=== PATIENT | female | born 1970 | race Caucasian/White ===

== ENCOUNTER 2018-05-26 20:33 | Inpatient (IN) | payer MEDICAID ==
[~2018-05-26] VITALS: Ht 163.8 cm; Wt 98.8 kg
[2018-05-26] MEDS ORDERED: SODIUM CHLORIDE 0.9% 1,000ML IVBOLUS ONE (21:30)
[2018-05-26] MEDS ORDERED: SODIUM CHLORIDE FLUSH 10ML SYR IVF ONE (21:30)
[2018-05-26] MEDS ORDERED: CLINDAMYCIN PMX 900MG/50ML 50 ML IVPB ONE (21:30)
[2018-05-26] MEDS ORDERED: LIDOCAINE-MPF 2%, 2ML ONE (21:52)
[2018-05-26 22:08] LABS: BASOPHILS # (AUTO) 0.03 x10^3/uL (0-0.1); BASOPHILS % (AUTO) 0 % (0-1); EOSINOPHILS # (AUTO) 0.04 x10^3/uL (0-0.4); EOSINOPHILS % (AUTO) 0 % (1-7); LYMPHOCYTES # (AUTO) 1.14 x10^3/uL (1-3.4); LYMPHOCYTES % (AUTO) 12 % (22-44); MD NO; MEAN CORPUSCULAR HEMOGLOBIN 30.7 pg (27.0-34.8); MEAN CORPUSCULAR HGB CONC 33.2 g/dL (32.4-35.8); MEAN CORPUSCULAR VOLUME 92.4 fL (80-100); MONOCYTES # (AUTO) 0.81 x10^3/uL (0.2-0.8); MONOCYTES % (AUTO) 8 % (2-9); NEUTROPHILS # (AUTO) 7.84 x10^3/uL (1.8-6.8); NEUTROPHILS % (AUTO) 80 % (42-75); PLATELET COUNT 218 x10^3/uL (130-400); RED BLOOD COUNT 5.36 x10^6/uL (3.82-5.3); RED CELL DISTRIBUTION WIDTH 16.9 % (9.6-15.2)
[2018-05-26 22:26] LABS: ALANINE AMINOTRANSFERASE 11 U/L (12-78); ALBUMIN 2.8 g/dL (3.4-5.0); ANION GAP 3 mmol/L (5-15); CALCIUM 8.5 mg/dL (8.5-10.1); CHLORIDE 102 mmol/L (98-107); CREATININE 0.71 mg/dL (0.55-1.02)
[2018-05-26 22:29] LABS: ALKALINE PHOSPHATASE 253 U/L (45-117); BILIRUBIN,TOTAL 2.3 mg/dL (0.2-1.0); TOTAL PROTEIN 7.5 g/dL (6.4-8.2)
[2018-05-26] MEDS ORDERED: MORPHINE SULFATE 4 MG/ML, 1ML ONE (23:11)
[2018-05-26] MEDS ORDERED: CLINDAMYCIN PMX 900MG/50ML 50 ML ONE (23:11)
[2018-05-26] MEDS ORDERED: ONDANSETRON ODT 4 MG ONE (23:11)
[2018-05-26 23:30] LABS: AMPHETAMINE SCREEN, URINE Negative (Negative); BARBITURATE SCREEN, URINE Negative (Negative); BENZODIAZEPINE SCREEN, URINE Negative (Negative); CANNABINOID SCREEN, URINE Negative (Negative); COCAINE SCREEN, URINE Negative (Negative); METHADONE SCREEN, URINE Negative (Negative); OPIATE SCREEN, URINE Positive (Negative)
[2018-05-26] MEDS ORDERED: ONDANSETRON ODT 4 MG PO ONE (23:30)
[2018-05-26] MEDS ORDERED: MORPHINE SULFATE 4 MG/ML, 1ML IVPush PRN (23:30)
[2018-05-26] MEDS ORDERED: OMNIPAQUE 350 MG/ML, 100ML BOTTLE ONE (23:52)
[2018-05-27] MEDS ORDERED: LABETALOL 5MG/ML, 20ML IVPush PRN (01:00)
[2018-05-27] MEDS ORDERED: ONDANSETRON 2MG/ML, 2ML IVPush PRN (01:00)
[2018-05-27] MEDS ORDERED: PROMETHAZINE 25 MG/ML, 1ML IM PRN (01:00)
[2018-05-27] MEDS ORDERED: BISACODYL 10 MG SUPP PR PRN (01:00)
[2018-05-27] MEDS ORDERED: ONDANSETRON ODT 4 MG PO PRN (01:00)
[2018-05-27] MEDS ORDERED: hydrALAzine 20 MG/ML, 1ML IVPush PRN (01:00)
[2018-05-27 01:11] LABS: FREE T4 (FREE THYROXINE) 1.31 ng/dL (0.76-1.46)
[2018-05-27 01:15] VITALS: BP 103/71
[2018-05-27 01:19] LABS: HEMOGLOBIN A1C 6.6 % (4.2-6.3)
[2018-05-27] MEDS: CEFTAROLINE 600 MG in SODIUM CHLORIDE 0.9% 100 ML IV SCH ×2 (01:58→14:42)
[2018-05-27] MEDS: OXYcodone IR 5MG TABLET PO PRN ×5 (01:59→20:41)
[2018-05-27] MEDS: SODIUM CHLORIDE 0.9% 1,000 ML IV SCH ×2 (01:59→13:25)
[2018-05-27] MEDS: HEPARIN 5,000 UNITS/ML, 1ML SQ SCH ×3 (01:59→17:48)
[2018-05-27 02:49] LABS: HCT (SEDRATE) 49.5 % (34.6-47.8)
[2018-05-27 06:47] VITALS: BP 107/78
[2018-05-27 06:53] LABS: BASOPHILS # (AUTO) 0.08 x10^3/uL (0-0.1); BASOPHILS % (AUTO) 1 % (0-1); EOSINOPHILS # (AUTO) 0.04 x10^3/uL (0-0.4); EOSINOPHILS % (AUTO) 0 % (1-7); LYMPHOCYTES # (AUTO) 1.01 x10^3/uL (1-3.4); LYMPHOCYTES % (AUTO) 10 % (22-44); MD NO; MEAN CORPUSCULAR HGB CONC 33.5 g/dL (32.4-35.8); MEAN CORPUSCULAR VOLUME 92.5 fL (80-100); MEAN PLATELET VOLUME 8.1 fL (7.4-10.4); MONOCYTES # (AUTO) 1.06 x10^3/uL (0.2-0.8); MONOCYTES % (AUTO) 10 % (2-9); NEUTROPHILS % (AUTO) 79 % (42-75); PLATELET COUNT 215 x10^3/uL (130-400); RED BLOOD COUNT 4.88 x10^6/uL (3.82-5.3); RED CELL DISTRIBUTION WIDTH 16.5 % (9.6-15.2)
[2018-05-27 07:01] LABS: ALANINE AMINOTRANSFERASE 9 U/L (12-78); ALBUMIN 2.4 g/dL (3.4-5.0); ANION GAP 6 mmol/L (5-15); CALCIUM 7.6 mg/dL (8.5-10.1); CHLORIDE 104 mmol/L (98-107); CREATININE 0.53 mg/dL (0.55-1.02)
[2018-05-27 07:03] LABS: ALKALINE PHOSPHATASE 222 U/L (45-117); BILIRUBIN,TOTAL 2.1 mg/dL (0.2-1.0); TOTAL PROTEIN 6.5 g/dL (6.4-8.2)
[2018-05-27] MEDS ORDERED: MAGNESIUM SULFATE PMX 2GM/50ML 50 ML IV ONE (07:30)
[2018-05-27] MEDS: CALCIUM CARBONATE 500 MG TABLET PO SCH ×2 (08:39→20:41)
[2018-05-27] MEDS: MAGNESIUM CHLORIDE 64 MG TABLET.DR PO SCH ×2 (08:39→20:41)
[2018-05-27] MEDS: KETOROLAC 30 MG/1 ML IV PRN ×2 (08:56→16:06)
[2018-05-27 14:00] VITALS: BP 99/69
[2018-05-27] MEDS ORDERED: LORazepam 2 MG/ML, 1ML IVPush ONE (17:00)
[2018-05-27] MEDS ORDERED: GADOBUTROL 10 MMOL/10 ML PFS ONE (18:44)
[2018-05-27 19:44] VITALS: BP 103/68
[2018-05-28] MEDS: OXYcodone IR 5MG TABLET PO PRN ×5 (00:33→20:42)
[2018-05-28 01:21] LABS: CULTURE INDICATED? YES; MICROSCOPIC INDICATED
[2018-05-28] MEDS: CEFTAROLINE 600 MG in SODIUM CHLORIDE 0.9% 100 ML IV SCH ×2 (01:57→14:45)
[2018-05-28] MEDS: HEPARIN 5,000 UNITS/ML, 1ML SQ SCH ×3 (01:57→18:11)
[2018-05-28 02:35] VITALS: BP 106/69
[2018-05-28 06:54] VITALS: BP 94/62
[2018-05-28 08:15] LABS: CHOL/HDL RATIO 2.5; LDL/HDL RATIO 1.1 (0.5-3.0)
[2018-05-28] MEDS: CALCIUM CARBONATE 500 MG TABLET PO SCH ×2 (09:20→20:42)
[2018-05-28] MEDS: MAGNESIUM CHLORIDE 64 MG TABLET.DR PO SCH ×2 (09:20→20:42)
[2018-05-28] MEDS ORDERED: OMNIPAQUE 350 MG/ML, 75ML BOTTLE ONE (10:20)
[2018-05-28] MEDS: KETOROLAC 30 MG/1 ML IV PRN ×2 (10:43→18:11)
[2018-05-28 12:08] VITALS: BP 108/79
[2018-05-28 13:42] VITALS: BP 95/72
[2018-05-28 19:06] VITALS: BP 108/79
[2018-05-29 01:53] VITALS: BP 90/62
[2018-05-29] MEDS: OXYcodone IR 5MG TABLET PO PRN ×2 (02:02→21:46)
[2018-05-29] MEDS: HEPARIN 5,000 UNITS/ML, 1ML SQ SCH ×3 (02:02→21:38)
[2018-05-29] MEDS: CEFTAROLINE 600 MG in SODIUM CHLORIDE 0.9% 100 ML IV SCH (02:02)
[2018-05-29] MEDS: KETOROLAC 30 MG/1 ML IV PRN (05:14)
[2018-05-29 06:09] LABS: BASOPHILS # (AUTO) 0.08 x10^3/uL (0-0.1); BASOPHILS % (AUTO) 1 % (0-1); EOSINOPHILS # (AUTO) 0.29 x10^3/uL (0-0.4); EOSINOPHILS % (AUTO) 4 % (1-7); LYMPHOCYTES # (AUTO) 1.58 x10^3/uL (1-3.4); LYMPHOCYTES % (AUTO) 20 % (22-44); MD NO; MEAN CORPUSCULAR HEMOGLOBIN 30.5 pg (27.0-34.8); MEAN CORPUSCULAR HGB CONC 32.9 g/dL (32.4-35.8); MEAN CORPUSCULAR VOLUME 92.7 fL (80-100); MEAN PLATELET VOLUME 8.2 fL (7.4-10.4); MONOCYTES # (AUTO) 0.77 x10^3/uL (0.2-0.8); MONOCYTES % (AUTO) 10 % (2-9); NEUTROPHILS # (AUTO) 5.19 x10^3/uL (1.8-6.8); NEUTROPHILS % (AUTO) 66 % (42-75); PLATELET COUNT 241 x10^3/uL (130-400); RED BLOOD COUNT 4.92 x10^6/uL (3.82-5.3)
[2018-05-29 06:15] LABS: ANION GAP 6 mmol/L (5-15); CALCIUM 8.1 mg/dL (8.5-10.1); CHLORIDE 104 mmol/L (98-107); CREATININE 0.77 mg/dL (0.55-1.02)
[2018-05-29 07:24] VITALS: BP 95/57
[2018-05-29] MEDS: CALCIUM CARBONATE 500 MG TABLET PO SCH ×2 (08:28→21:38)
[2018-05-29] MEDS: MAGNESIUM CHLORIDE 64 MG TABLET.DR PO SCH ×2 (08:28→21:38)
[2018-05-29] MEDS ORDERED: CLINDAMYCIN PMX 600MG/50ML 50 ML IV SCH (10:00)
[2018-05-29] MEDS: LACTOBACILLUS CHEW TABLET PO SCH ×3 (10:51→21:38)
[2018-05-29 13:18] VITALS: BP 98/68
[2018-05-29] MEDS ORDERED: VANCOMYCIN PER PHARMACY MC PRN (13:30)
[2018-05-29] MEDS ORDERED: VANCOMYCIN PMX 1GM/200ML 200 ML IV ONE (13:30)
[2018-05-29] MEDS ORDERED: PHARMACOKINETIC MONITORING MC PRN (14:00)
[2018-05-29] MEDS ORDERED: PHARMACOKINETIC CONSULTATION MC ONE (14:00)
[2018-05-29] MEDS: VANCOMYCIN 1,800 MG in SODIUM CHLORIDE 0.9% 250 ML IV SCH (17:44)
[2018-05-29 19:28] VITALS: BP 102/70
[2018-05-30] MEDS: HEPARIN 5,000 UNITS/ML, 1ML SQ SCH ×3 (02:30→20:18)
[2018-05-30 03:00] VITALS: BP 107/72
[2018-05-30] MEDS: VANCOMYCIN 1,800 MG in SODIUM CHLORIDE 0.9% 250 ML IV SCH ×2 (04:44→17:45)
[2018-05-30 07:20] VITALS: BP 100/70
[2018-05-30] MEDS: LACTOBACILLUS CHEW TABLET PO SCH ×3 (09:29→20:18)
[2018-05-30] MEDS: MAGNESIUM CHLORIDE 64 MG TABLET.DR PO SCH ×2 (09:29→20:18)
[2018-05-30] MEDS: OXYcodone IR 5MG TABLET PO PRN ×3 (09:29→20:26)
[2018-05-30] MEDS: CALCIUM CARBONATE 500 MG TABLET PO SCH ×2 (09:29→20:19)
[2018-05-30 13:27] VITALS: BP 104/69
[2018-05-30 19:01] VITALS: BP 94/64
[2018-05-31 00:55] VITALS: BP 97/67
[2018-05-31 02:47] LABS: CREATININE 0.66 mg/dL (0.55-1.02)
[2018-05-31] MEDS: HEPARIN 5,000 UNITS/ML, 1ML SQ SCH ×3 (02:47→19:18)
[2018-05-31] MEDS: OXYcodone IR 5MG TABLET PO PRN ×3 (03:22→16:23)
[2018-05-31 07:03] VITALS: BP 112/78
[2018-05-31] MEDS: CALCIUM CARBONATE 500 MG TABLET PO SCH ×2 (07:59→19:18)
[2018-05-31] MEDS: LACTOBACILLUS CHEW TABLET PO SCH ×3 (08:00→19:18)
[2018-05-31] MEDS: DOCUSATE 100 MG CAPSULE PO PRN (11:32)
[2018-05-31 12:28] VITALS: BP 137/75
[2018-05-31 19:20] VITALS: BP 98/69
[2018-06-01] MEDS: OXYcodone IR 5MG TABLET PO PRN ×4 (00:44→22:03)
[2018-06-01 01:29] VITALS: BP 102/72
[2018-06-01] MEDS: HEPARIN 5,000 UNITS/ML, 1ML SQ SCH ×3 (02:35→20:04)
[2018-06-01 03:21] LABS: ALANINE AMINOTRANSFERASE 12 U/L (12-78); ALBUMIN 2.3 g/dL (3.4-5.0); ANION GAP 5 mmol/L (5-15); CALCIUM 8.3 mg/dL (8.5-10.1); CHLORIDE 106 mmol/L (98-107)
[2018-06-01 03:24] LABS: ALKALINE PHOSPHATASE 259 U/L (45-117); BILIRUBIN,TOTAL 1.1 mg/dL (0.2-1.0); CREATININE 0.71 mg/dL (0.55-1.02); TOTAL PROTEIN 6.5 g/dL (6.4-8.2); VANCOMYCIN,RANDOM 14.3 mcg/mL
[2018-06-01] MEDS ORDERED: VANCOMYCIN 1,800 MG in SODIUM CHLORIDE 0.9% 250 ML IV ONE (05:00)
[2018-06-01 07:51] VITALS: BP 103/70
[2018-06-01] MEDS: CALCIUM CARBONATE 500 MG TABLET PO SCH ×2 (09:31→20:04)
[2018-06-01] MEDS: LACTOBACILLUS CHEW TABLET PO SCH ×3 (09:31→20:04)
[2018-06-01] MEDS: ACETAMINOPHEN 325 MG TABLET PO PRN ×3 (09:54→22:03)
[2018-06-01] MEDS: BACLOFEN 10 MG TABLET PO PRN ×2 (09:54→17:57)
[2018-06-01] MEDS ORDERED: FUROSEMIDE 20 MG/2 ML IV ONE (11:00)
[2018-06-01] MEDS: IBUPROFEN 200 MG TABLET PO PRN ×2 (11:36→17:57)
[2018-06-01 12:39] VITALS: BP 118/78
[2018-06-01 19:01] VITALS: BP 111/73
[2018-06-02 01:07] VITALS: BP 110/72
[2018-06-02] MEDS: HEPARIN 5,000 UNITS/ML, 1ML SQ SCH ×3 (03:00→20:10)
[2018-06-02 05:57] LABS: BASOPHILS # (AUTO) 0.05 x10^3/uL (0-0.1); BASOPHILS % (AUTO) 1 % (0-1); EOSINOPHILS # (AUTO) 0.25 x10^3/uL (0-0.4); EOSINOPHILS % (AUTO) 3 % (1-7); LYMPHOCYTES # (AUTO) 1.46 x10^3/uL (1-3.4); LYMPHOCYTES % (AUTO) 20 % (22-44); MD NO; MEAN CORPUSCULAR HEMOGLOBIN 30.4 pg (27.0-34.8); MEAN CORPUSCULAR HGB CONC 33.5 g/dL (32.4-35.8); MEAN CORPUSCULAR VOLUME 90.7 fL (80-100); MEAN PLATELET VOLUME 7.5 fL (7.4-10.4); MONOCYTES # (AUTO) 0.62 x10^3/uL (0.2-0.8); MONOCYTES % (AUTO) 9 % (2-9); NEUTROPHILS # (AUTO) 4.76 x10^3/uL (1.8-6.8); NEUTROPHILS % (AUTO) 67 % (42-75); PLATELET COUNT 339 x10^3/uL (130-400); RED BLOOD COUNT 5.03 x10^6/uL (3.82-5.3); RED CELL DISTRIBUTION WIDTH 17.5 % (9.6-15.2)
[2018-06-02 06:07] LABS: ANION GAP 8 mmol/L (5-15); CALCIUM 8.9 mg/dL (8.5-10.1); CHLORIDE 106 mmol/L (98-107)
[2018-06-02 06:12] LABS: CREATININE 0.81 mg/dL (0.55-1.02); VANCOMYCIN,RANDOM 20.4 mcg/mL
[2018-06-02] MEDS: OXYcodone IR 5MG TABLET PO PRN ×3 (06:13→18:12)
[2018-06-02] MEDS: ACETAMINOPHEN 325 MG TABLET PO PRN (06:14)
[2018-06-02] MEDS ORDERED: VANCOMYCIN 1,800 MG in SODIUM CHLORIDE 0.9% 250 ML IV ONE (07:00)
[2018-06-02 07:30] VITALS: BP 121/77
[2018-06-02] MEDS: CALCIUM CARBONATE 500 MG TABLET PO SCH ×2 (07:57→20:10)
[2018-06-02] MEDS: LACTOBACILLUS CHEW TABLET PO SCH ×3 (07:57→20:10)
[2018-06-02 13:22] VITALS: BP 101/66
[2018-06-02 20:52] VITALS: BP 109/69
[2018-06-03] MEDS: HEPARIN 5,000 UNITS/ML, 1ML SQ SCH ×3 (02:26→19:50)
[2018-06-03 02:29] VITALS: BP 95/57
[2018-06-03] MEDS: OXYcodone IR 5MG TABLET PO PRN ×4 (05:47→21:40)
[2018-06-03 07:15] VITALS: BP 106/71
[2018-06-03] MEDS: CALCIUM CARBONATE 500 MG TABLET PO SCH ×2 (09:26→21:40)
[2018-06-03] MEDS: LACTOBACILLUS CHEW TABLET PO SCH ×3 (09:26→21:40)
[2018-06-03] MEDS: DOCUSATE 100 MG CAPSULE PO PRN ×2 (10:17→21:40)
[2018-06-03 12:34] VITALS: BP 107/72
[2018-06-03] MEDS: DAPTOMYCIN 600 MG in SODIUM CHLORIDE 0.9% 100 ML IV SCH ×3 (13:09→17:03)
[2018-06-03 18:30] VITALS: BP 110/76
[2018-06-04 03:32] VITALS: BP 135/79
[2018-06-04] MEDS: HEPARIN 5,000 UNITS/ML, 1ML SQ SCH ×3 (03:35→21:55)
[2018-06-04] MEDS: OXYcodone IR 5MG TABLET PO PRN ×4 (03:52→21:55)
[2018-06-04 07:55] VITALS: BP 102/65
[2018-06-04] MEDS: CALCIUM CARBONATE 500 MG TABLET PO SCH ×2 (09:14→21:55)
[2018-06-04] MEDS: LACTOBACILLUS CHEW TABLET PO SCH ×3 (09:14→21:55)
[2018-06-04 12:30] VITALS: BP 117/62
[2018-06-04] MEDS: DAPTOMYCIN 600 MG in SODIUM CHLORIDE 0.9% 100 ML IV SCH (16:18)
[2018-06-04] MEDS: IBUPROFEN 200 MG TABLET PO PRN (17:37)
[2018-06-04 19:50] VITALS: BP 114/77
[2018-06-05 01:24] VITALS: BP 108/73
[2018-06-05] MEDS: OXYcodone IR 5MG TABLET PO PRN ×2 (03:22→10:26)
[2018-06-05] MEDS: HEPARIN 5,000 UNITS/ML, 1ML SQ SCH ×3 (04:00→22:12)
[2018-06-05 07:37] VITALS: BP 102/67
[2018-06-05] MEDS ORDERED: MIDAZOLAM 1 MG/ML, 5ML ONE (07:42)
[2018-06-05] MEDS ORDERED: FENTANYL PF 100 MCG/2ML ONE (07:42)
[2018-06-05] MEDS ORDERED: FLUMAZENIL 0.1 MG/1 ML, 5ML ONE (07:42)
[2018-06-05] MEDS ORDERED: NALOXONE 1 MG/ML, 2ML ONE (07:42)
[2018-06-05] MEDS ORDERED: LIDOCAINE-MPF 2%, 2ML ONE ×2 (08:23→08:42)
[2018-06-05] MEDS: CALCIUM CARBONATE 500 MG TABLET PO SCH ×2 (10:26→22:12)
[2018-06-05] MEDS: LACTOBACILLUS CHEW TABLET PO SCH ×3 (10:26→22:12)
[2018-06-05] MEDS: BACLOFEN 10 MG TABLET PO PRN (10:48)
[2018-06-05 12:31] LABS: BASOPHILS # (AUTO) 0.12 x10^3/uL (0-0.1); BASOPHILS % (AUTO) 1 % (0-1); EOSINOPHILS # (AUTO) 0.19 x10^3/uL (0-0.4); EOSINOPHILS % (AUTO) 2 % (1-7); LYMPHOCYTES # (AUTO) 1.99 x10^3/uL (1-3.4); LYMPHOCYTES % (AUTO) 23 % (22-44); MD NO; MEAN CORPUSCULAR HEMOGLOBIN 30.4 pg (27.0-34.8); MEAN CORPUSCULAR HGB CONC 32.8 g/dL (32.4-35.8); MEAN CORPUSCULAR VOLUME 92.6 fL (80-100); MEAN PLATELET VOLUME 7.1 fL (7.4-10.4); MONOCYTES # (AUTO) 0.73 x10^3/uL (0.2-0.8); MONOCYTES % (AUTO) 8 % (2-9); NEUTROPHILS # (AUTO) 5.67 x10^3/uL (1.8-6.8); NEUTROPHILS % (AUTO) 65 % (42-75); PLATELET COUNT 306 x10^3/uL (130-400); RED CELL DISTRIBUTION WIDTH 17.6 % (9.6-15.2)
[2018-06-05 12:37] LABS: ANION GAP 7 mmol/L (5-15); CALCIUM 8.9 mg/dL (8.5-10.1); CHLORIDE 105 mmol/L (98-107)
[2018-06-05 14:30] VITALS: BP 101/70
[2018-06-05] MEDS: DAPTOMYCIN 600 MG in SODIUM CHLORIDE 0.9% 100 ML IV SCH (16:02)
[2018-06-05 19:45] VITALS: BP 112/74
[2018-06-05] MEDS: DOCUSATE 100 MG CAPSULE PO PRN (22:24)
[2018-06-06 02:47] VITALS: BP 113/65
[2018-06-06] MEDS: OXYcodone IR 5MG TABLET PO PRN ×4 (03:42→20:26)
[2018-06-06] MEDS: HEPARIN 5,000 UNITS/ML, 1ML SQ SCH ×3 (03:42→20:25)
[2018-06-06 08:24] VITALS: BP 110/74
[2018-06-06] MEDS: BACLOFEN 10 MG TABLET PO PRN (10:17)
[2018-06-06] MEDS: CALCIUM CARBONATE 500 MG TABLET PO SCH ×2 (10:17→20:26)
[2018-06-06] MEDS: LACTOBACILLUS CHEW TABLET PO SCH ×3 (10:17→20:26)
[2018-06-06 14:30] VITALS: BP 107/68
[2018-06-06] MEDS: DAPTOMYCIN 600 MG in SODIUM CHLORIDE 0.9% 100 ML IV SCH (17:36)
[2018-06-06 18:59] VITALS: BP 104/60
[2018-06-07 00:15] VITALS: BP 116/72
[2018-06-07] MEDS: DOCUSATE 100 MG CAPSULE PO PRN (03:21)
[2018-06-07] MEDS: HEPARIN 5,000 UNITS/ML, 1ML SQ SCH ×3 (03:21→19:20)
[2018-06-07] MEDS: OXYcodone IR 5MG TABLET PO PRN ×3 (03:21→18:09)
[2018-06-07 03:23] LABS: BASOPHILS # (AUTO) 0.04 x10^3/uL (0-0.1); BASOPHILS % (AUTO) 1 % (0-1); EOSINOPHILS # (AUTO) 0.23 x10^3/uL (0-0.4); EOSINOPHILS % (AUTO) 3 % (1-7); LYMPHOCYTES # (AUTO) 2.04 x10^3/uL (1-3.4); LYMPHOCYTES % (AUTO) 25 % (22-44); MD NO; MEAN CORPUSCULAR HEMOGLOBIN 30.9 pg (27.0-34.8); MEAN CORPUSCULAR HGB CONC 33.1 g/dL (32.4-35.8); MEAN CORPUSCULAR VOLUME 93.4 fL (80-100); MEAN PLATELET VOLUME 7.1 fL (7.4-10.4); MONOCYTES # (AUTO) 0.72 x10^3/uL (0.2-0.8); MONOCYTES % (AUTO) 9 % (2-9); NEUTROPHILS # (AUTO) 5.21 x10^3/uL (1.8-6.8); NEUTROPHILS % (AUTO) 63 % (42-75); PLATELET COUNT 235 x10^3/uL (130-400); RED BLOOD COUNT 4.69 x10^6/uL (3.82-5.3); RED CELL DISTRIBUTION WIDTH 17.7 % (9.6-15.2)
[2018-06-07 03:25] LABS: ALANINE AMINOTRANSFERASE 13 U/L (12-78); ALBUMIN 2.5 g/dL (3.4-5.0); ANION GAP 7 mmol/L (5-15); CHLORIDE 104 mmol/L (98-107); CREATININE 1.01 mg/dL (0.55-1.02)
[2018-06-07 03:27] LABS: ALKALINE PHOSPHATASE 222 U/L (45-117); BILIRUBIN,TOTAL 1.1 mg/dL (0.2-1.0)
[2018-06-07] MEDS ORDERED: MAGNESIUM SULFATE PMX 2GM/50ML 50 ML IV ONE (07:30)
[2018-06-07 07:54] VITALS: BP 120/80
[2018-06-07] MEDS: LACTOBACILLUS CHEW TABLET PO SCH ×3 (10:45→19:20)
[2018-06-07] MEDS: CALCIUM CARBONATE 500 MG TABLET PO SCH ×2 (10:45→19:20)
[2018-06-07] MEDS: BACLOFEN 10 MG TABLET PO PRN (13:51)
[2018-06-07] MEDS: ACETAMINOPHEN 325 MG TABLET PO PRN ×2 (13:51→18:10)
[2018-06-07 14:30] VITALS: BP 118/79
[2018-06-07] MEDS: IBUPROFEN 200 MG TABLET PO PRN (16:26)
[2018-06-07] MEDS: DAPTOMYCIN 600 MG in SODIUM CHLORIDE 0.9% 100 ML IV SCH (16:49)
[2018-06-07 19:05] VITALS: BP 142/87
[2018-06-08 01:35] VITALS: BP 125/83
[2018-06-08] MEDS: OXYcodone IR 5MG TABLET PO PRN ×5 (01:40→20:49)
[2018-06-08] MEDS: BACLOFEN 10 MG TABLET PO PRN ×2 (03:19→14:24)
[2018-06-08] MEDS: HEPARIN 5,000 UNITS/ML, 1ML SQ SCH ×3 (03:32→20:48)
[2018-06-08] MEDS: IBUPROFEN 200 MG TABLET PO PRN ×3 (05:47→20:49)
[2018-06-08] MEDS: LACTOBACILLUS CHEW TABLET PO SCH ×3 (09:02→20:49)
[2018-06-08] MEDS: CALCIUM CARBONATE 500 MG TABLET PO SCH ×2 (09:03→20:49)
[2018-06-08 09:10] VITALS: BP 116/75
[2018-06-08] MEDS: ACETAMINOPHEN 325 MG TABLET PO PRN ×2 (11:24→17:00)
[2018-06-08 13:21] VITALS: BP 99/69
[2018-06-08] MEDS: DAPTOMYCIN 600 MG in SODIUM CHLORIDE 0.9% 100 ML IV SCH (16:59)
[2018-06-08 18:50] VITALS: BP 110/76
[2018-06-08] MEDS: DOCUSATE 100 MG CAPSULE PO PRN (20:49)
[2018-06-09 01:12] VITALS: BP 111/81
[2018-06-09] MEDS: BACLOFEN 10 MG TABLET PO PRN (01:39)
[2018-06-09] MEDS: OXYcodone IR 5MG TABLET PO PRN ×3 (01:39→18:19)
[2018-06-09] MEDS: IBUPROFEN 200 MG TABLET PO PRN ×2 (04:02→18:19)
[2018-06-09] MEDS: HEPARIN 5,000 UNITS/ML, 1ML SQ SCH ×3 (04:03→20:08)
[2018-06-09 04:46] LABS: ALBUMIN 2.3 g/dL (3.4-5.0); ANION GAP 4 mmol/L (5-15); CALCIUM 8.3 mg/dL (8.5-10.1); CHLORIDE 106 mmol/L (98-107)
[2018-06-09 04:50] LABS: ALANINE AMINOTRANSFERASE 13 U/L (12-78); ALKALINE PHOSPHATASE 219 U/L (45-117); BILIRUBIN,TOTAL 1.1 mg/dL (0.2-1.0); C-REACTIVE PROTEIN, QUANT 0.91 mg/dL (0.02-0.49); CREATINE KINASE, TOTAL 44 U/L (26-192); CREATININE 1.14 mg/dL (0.55-1.02); TOTAL PROTEIN 6.9 g/dL (6.4-8.2)
[2018-06-09 05:01] LABS: BASOPHILS # (AUTO) 0.03 x10^3/uL (0-0.1); BASOPHILS % (AUTO) 0 % (0-1); EOSINOPHILS # (AUTO) 0.16 x10^3/uL (0-0.4); EOSINOPHILS % (AUTO) 2 % (1-7); LYMPHOCYTES # (AUTO) 1.47 x10^3/uL (1-3.4); LYMPHOCYTES % (AUTO) 22 % (22-44); MD NO; MEAN CORPUSCULAR HEMOGLOBIN 30.8 pg (27.0-34.8); MEAN CORPUSCULAR HGB CONC 33.1 g/dL (32.4-35.8); MEAN CORPUSCULAR VOLUME 93.1 fL (80-100); MEAN PLATELET VOLUME 7.8 fL (7.4-10.4); MONOCYTES # (AUTO) 0.55 x10^3/uL (0.2-0.8); MONOCYTES % (AUTO) 8 % (2-9); NEUTROPHILS # (AUTO) 4.44 x10^3/uL (1.8-6.8); NEUTROPHILS % (AUTO) 67 % (42-75); PLATELET COUNT 196 x10^3/uL (130-400); RED BLOOD COUNT 4.36 x10^6/uL (3.82-5.3); RED CELL DISTRIBUTION WIDTH 17.7 % (9.6-15.2)
[2018-06-09 05:02] LABS: HCT (SEDRATE) 40.8 % (34.6-47.8)
[2018-06-09 07:56] VITALS: BP 136/84
[2018-06-09] MEDS: CALCIUM CARBONATE 500 MG TABLET PO SCH ×2 (08:47→20:08)
[2018-06-09] MEDS: LACTOBACILLUS CHEW TABLET PO SCH ×3 (08:47→20:08)
[2018-06-09] MEDS: CYCLOBENZAPRINE 10 MG TABLET PO PRN (12:43)
[2018-06-09 14:01] VITALS: BP 114/81
[2018-06-09] MEDS: DAPTOMYCIN 600 MG in SODIUM CHLORIDE 0.9% 100 ML IV SCH (18:11)
[2018-06-09 18:58] VITALS: BP 106/76
[2018-06-09] MEDS: ACETAMINOPHEN 325 MG TABLET PO PRN (20:20)
[2018-06-10 01:00] VITALS: BP 109/64
[2018-06-10] MEDS: OXYcodone IR 5MG TABLET PO PRN ×4 (01:08→21:08)
[2018-06-10] MEDS: HEPARIN 5,000 UNITS/ML, 1ML SQ SCH ×3 (03:04→21:09)
[2018-06-10 07:22] VITALS: BP 118/86
[2018-06-10] MEDS ORDERED: FUROSEMIDE 20 MG/2 ML IV ONE (07:45)
[2018-06-10] MEDS: CYCLOBENZAPRINE 10 MG TABLET PO PRN (08:04)
[2018-06-10] MEDS: CALCIUM CARBONATE 500 MG TABLET PO SCH ×2 (08:04→21:08)
[2018-06-10] MEDS: DOCUSATE 100 MG CAPSULE PO PRN ×2 (08:04→11:43)
[2018-06-10] MEDS: LACTOBACILLUS CHEW TABLET PO SCH ×3 (08:04→21:08)
[2018-06-10 13:44] VITALS: BP 140/85
[2018-06-10] MEDS: DAPTOMYCIN 600 MG in SODIUM CHLORIDE 0.9% 100 ML IV SCH (17:16)
[2018-06-10 19:54] VITALS: BP 98/76
[2018-06-11 01:51] VITALS: BP 106/81
[2018-06-11] MEDS: OXYcodone IR 5MG TABLET PO PRN ×3 (02:39→19:22)
[2018-06-11] MEDS: HEPARIN 5,000 UNITS/ML, 1ML SQ SCH ×3 (04:00→19:23)
[2018-06-11 08:19] VITALS: BP 123/71
[2018-06-11] MEDS: LACTOBACILLUS CHEW TABLET PO SCH ×3 (09:50→20:42)
[2018-06-11] MEDS: CALCIUM CARBONATE 500 MG TABLET PO SCH ×2 (09:50→20:42)
[2018-06-11] MEDS: CYCLOBENZAPRINE 10 MG TABLET PO PRN (10:09)
[2018-06-11] MEDS: DOCUSATE 100 MG CAPSULE PO PRN (10:09)
[2018-06-11 13:59] VITALS: BP 123/60
[2018-06-11] MEDS: DAPTOMYCIN 600 MG in SODIUM CHLORIDE 0.9% 100 ML IV SCH (17:07)
[2018-06-11 19:05] VITALS: BP 122/85
[2018-06-11 23:53] VITALS: BP 120/81
[2018-06-12] MEDS: OXYcodone IR 5MG TABLET PO PRN ×4 (01:10→22:17)
[2018-06-12] MEDS: HEPARIN 5,000 UNITS/ML, 1ML SQ SCH ×3 (03:29→21:28)
[2018-06-12 07:59] VITALS: BP 130/90
[2018-06-12] MEDS: LACTOBACILLUS CHEW TABLET PO SCH ×3 (08:59→21:28)
[2018-06-12] MEDS: CYCLOBENZAPRINE 10 MG TABLET PO PRN (08:59)
[2018-06-12] MEDS: CALCIUM CARBONATE 500 MG TABLET PO SCH ×2 (08:59→21:28)
[2018-06-12] MEDS: DOCUSATE 100 MG CAPSULE PO PRN (13:17)
[2018-06-12 13:29] VITALS: BP 131/76
[2018-06-12] MEDS: DAPTOMYCIN 600 MG in SODIUM CHLORIDE 0.9% 100 ML IV SCH (18:39)
[2018-06-12 21:24] VITALS: BP 119/84
[2018-06-12 23:39] VITALS: BP 115/77
[2018-06-13] MEDS: HEPARIN 5,000 UNITS/ML, 1ML SQ SCH ×3 (06:08→20:53)
[2018-06-13] MEDS: OXYcodone IR 5MG TABLET PO PRN ×4 (06:08→20:53)
[2018-06-13 07:33] VITALS: BP 125/86
[2018-06-13] MEDS: CALCIUM CARBONATE 500 MG TABLET PO SCH ×2 (09:22→20:53)
[2018-06-13] MEDS: POLYETHYLENE GLYCOL 17 GM PACKET PO PRN (09:23)
[2018-06-13] MEDS: LACTOBACILLUS CHEW TABLET PO SCH ×3 (09:23→20:53)
[2018-06-13] MEDS: DOCUSATE 100 MG CAPSULE PO PRN (09:31)
[2018-06-13] MEDS: IBUPROFEN 200 MG TABLET PO PRN (09:31)
[2018-06-13] MEDS ORDERED: LACTULOSE 20 GM/30 ML UDC PO PRN (12:30)
[2018-06-13] MEDS ORDERED: BISACODYL 10 MG SUPP PR PRN (12:30)
[2018-06-13 12:43] VITALS: BP 132/89
[2018-06-13] MEDS: DAPTOMYCIN 600 MG in SODIUM CHLORIDE 0.9% 100 ML IV SCH (18:26)
[2018-06-13 19:28] VITALS: BP 123/86
[2018-06-14 01:04] VITALS: BP 128/90
[2018-06-14] MEDS: OXYcodone IR 5MG TABLET PO PRN ×4 (01:35→22:11)
[2018-06-14] MEDS: HEPARIN 5,000 UNITS/ML, 1ML SQ SCH ×3 (06:21→21:02)
[2018-06-14 07:15] VITALS: BP 133/83
[2018-06-14] MEDS ORDERED: DOCUSATE 100 MG CAPSULE PO SCH (09:00)
[2018-06-14] MEDS: LACTOBACILLUS CHEW TABLET PO SCH ×3 (10:49→21:01)
[2018-06-14] MEDS: CALCIUM CARBONATE 500 MG TABLET PO SCH ×2 (10:49→21:01)
[2018-06-14 12:23] VITALS: BP 126/86
[2018-06-14] MEDS: DAPTOMYCIN 600 MG in SODIUM CHLORIDE 0.9% 100 ML IV SCH (18:46)
[2018-06-14 21:17] VITALS: BP 134/92
[2018-06-15 01:47] VITALS: BP 131/89
[2018-06-15] MEDS: OXYcodone IR 5MG TABLET PO PRN ×4 (03:19→21:07)
[2018-06-15 06:46] VITALS: BP 113/78
[2018-06-15] MEDS: HEPARIN 5,000 UNITS/ML, 1ML SQ SCH ×2 (09:22→16:28)
[2018-06-15] MEDS: DOCUSATE 100 MG CAPSULE PO SCH ×2 (09:23→21:07)
[2018-06-15] MEDS: CALCIUM CARBONATE 500 MG TABLET PO SCH ×2 (09:23→21:06)
[2018-06-15] MEDS: LACTOBACILLUS CHEW TABLET PO SCH ×3 (09:23→21:07)
[2018-06-15 12:04] VITALS: BP 131/89
[2018-06-15] MEDS: DAPTOMYCIN 600 MG in SODIUM CHLORIDE 0.9% 100 ML IV SCH (18:34)
[2018-06-15 21:08] VITALS: BP_SYST 143; BP_DIAS 92; BP_DIAS 99
[2018-06-15 22:05] VITALS: BP 129/89
[2018-06-16 02:09] VITALS: BP 125/93
[2018-06-16] MEDS: HEPARIN 5,000 UNITS/ML, 1ML SQ SCH ×3 (04:37→18:04)
[2018-06-16] MEDS: OXYcodone IR 5MG TABLET PO PRN ×5 (04:37→22:48)
[2018-06-16 05:16] LABS: BASOPHILS # (AUTO) 0.04 x10^3/uL (0-0.1); BASOPHILS % (AUTO) 1 % (0-1); EOSINOPHILS # (AUTO) 0.17 x10^3/uL (0-0.4); EOSINOPHILS % (AUTO) 3 % (1-7); LYMPHOCYTES # (AUTO) 1.38 x10^3/uL (1-3.4); LYMPHOCYTES % (AUTO) 22 % (22-44); MD NO; MEAN CORPUSCULAR HGB CONC 33.5 g/dL (32.4-35.8); MEAN CORPUSCULAR VOLUME 92.4 fL (80-100); MEAN PLATELET VOLUME 7.3 fL (7.4-10.4); MONOCYTES # (AUTO) 0.54 x10^3/uL (0.2-0.8); MONOCYTES % (AUTO) 9 % (2-9); NEUTROPHILS # (AUTO) 4.12 x10^3/uL (1.8-6.8); NEUTROPHILS % (AUTO) 66 % (42-75); PLATELET COUNT 221 x10^3/uL (130-400); RED BLOOD COUNT 4.42 x10^6/uL (3.82-5.3); RED CELL DISTRIBUTION WIDTH 18.1 % (9.6-15.2)
[2018-06-16 05:22] LABS: ALANINE AMINOTRANSFERASE 18 U/L (12-78); ALBUMIN 2.3 g/dL (3.4-5.0); ANION GAP 6 mmol/L (5-15); CALCIUM 8.3 mg/dL (8.5-10.1); CHLORIDE 104 mmol/L (98-107); CREATININE 1.09 mg/dL (0.55-1.02)
[2018-06-16 05:28] LABS: ALKALINE PHOSPHATASE 254 U/L (45-117); BILIRUBIN,TOTAL 1.2 mg/dL (0.2-1.0); CREATINE KINASE, TOTAL 173 U/L (26-192); TOTAL PROTEIN 6.9 g/dL (6.4-8.2)
[2018-06-16 06:45] VITALS: BP 130/91
[2018-06-16 07:04] LABS: HCT (SEDRATE) 40.9 % (34.6-47.8)
[2018-06-16] MEDS: LACTOBACILLUS CHEW TABLET PO SCH ×3 (08:44→20:05)
[2018-06-16] MEDS: CALCIUM CARBONATE 500 MG TABLET PO SCH ×2 (08:44→20:05)
[2018-06-16] MEDS: DOCUSATE 100 MG CAPSULE PO SCH ×2 (08:44→20:05)
[2018-06-16 12:13] VITALS: BP 139/97
[2018-06-16] MEDS: DAPTOMYCIN 600 MG in SODIUM CHLORIDE 0.9% 100 ML IV SCH (18:03)
[2018-06-16 20:05] VITALS: BP 132/92
[2018-06-16 21:20] VITALS: BP 148/101
[2018-06-16] MEDS ORDERED: AMLODIPINE 5 MG TABLET PO ONE (22:00)
[2018-06-16 23:31] VITALS: BP 130/92
[2018-06-17] MEDS: HEPARIN 5,000 UNITS/ML, 1ML SQ SCH ×3 (02:00→18:54)
[2018-06-17 02:52] VITALS: BP 121/83
[2018-06-17] MEDS: OXYcodone IR 5MG TABLET PO PRN ×4 (06:36→21:09)
[2018-06-17 06:59] VITALS: BP 141/82
[2018-06-17] MEDS: CALCIUM CARBONATE 500 MG TABLET PO SCH ×2 (08:38→20:40)
[2018-06-17] MEDS: DOCUSATE 100 MG CAPSULE PO SCH ×2 (08:38→20:40)
[2018-06-17] MEDS: LACTOBACILLUS CHEW TABLET PO SCH ×3 (08:38→20:40)
[2018-06-17 12:24] VITALS: BP 138/92
[2018-06-17] MEDS: IBUPROFEN 200 MG TABLET PO PRN (12:38)
[2018-06-17 18:55] VITALS: BP 137/96
[2018-06-17] MEDS: DAPTOMYCIN 600 MG in SODIUM CHLORIDE 0.9% 100 ML IV SCH (20:40)
[2018-06-18 01:10] VITALS: BP 143/90
[2018-06-18] MEDS: HEPARIN 5,000 UNITS/ML, 1ML SQ SCH ×3 (02:00→16:36)
[2018-06-18] MEDS: IBUPROFEN 200 MG TABLET PO PRN ×2 (03:04→16:36)
[2018-06-18] MEDS: OXYcodone IR 5MG TABLET PO PRN ×4 (03:04→18:13)
[2018-06-18 07:41] VITALS: BP 136/96
[2018-06-18] MEDS: CALCIUM CARBONATE 500 MG TABLET PO SCH ×2 (09:22→19:51)
[2018-06-18] MEDS: DOCUSATE 100 MG CAPSULE PO SCH ×2 (09:22→19:51)
[2018-06-18] MEDS: LACTOBACILLUS CHEW TABLET PO SCH ×3 (09:22→19:51)
[2018-06-18 13:10] VITALS: BP 132/88
[2018-06-18 18:30] VITALS: BP 144/90
[2018-06-18] MEDS: DAPTOMYCIN 600 MG in SODIUM CHLORIDE 0.9% 100 ML IV SCH (20:37)
[2018-06-19] MEDS: IBUPROFEN 200 MG TABLET PO PRN (00:52)
[2018-06-19] MEDS: OXYcodone IR 5MG TABLET PO PRN ×3 (00:52→14:54)
[2018-06-19 01:33] VITALS: BP 141/98
[2018-06-19] MEDS: HEPARIN 5,000 UNITS/ML, 1ML SQ SCH ×3 (02:00→17:29)
[2018-06-19 07:17] VITALS: BP 142/99
[2018-06-19] MEDS ORDERED: KETOROLAC 30 MG/1 ML IM PRN (09:00)
[2018-06-19] MEDS: CALCIUM CARBONATE 500 MG TABLET PO SCH ×2 (09:00→21:19)
[2018-06-19] MEDS: KETOROLAC 30 MG/1 ML IVPush PRN ×2 (09:32→19:36)
[2018-06-19] MEDS: LACTOBACILLUS CHEW TABLET PO SCH ×3 (09:33→21:19)
[2018-06-19] MEDS: DOCUSATE 100 MG CAPSULE PO SCH ×2 (09:33→21:20)
[2018-06-19 13:40] VITALS: BP 145/89
[2018-06-19 19:02] VITALS: BP 143/96
[2018-06-19] MEDS: DAPTOMYCIN 600 MG in SODIUM CHLORIDE 0.9% 100 ML IV SCH (21:19)
[2018-06-20 01:11] VITALS: BP 143/98
[2018-06-20] MEDS: HEPARIN 5,000 UNITS/ML, 1ML SQ SCH ×3 (02:14→18:31)
[2018-06-20 07:44] VITALS: BP 158/115
[2018-06-20] MEDS: CALCIUM CARBONATE 500 MG TABLET PO SCH ×2 (09:37→20:51)
[2018-06-20] MEDS: LACTOBACILLUS CHEW TABLET PO SCH ×3 (09:37→20:51)
[2018-06-20] MEDS: OXYcodone IR 5MG TABLET PO PRN ×3 (09:37→18:31)
[2018-06-20] MEDS: DOCUSATE 100 MG CAPSULE PO SCH ×2 (09:37→20:51)
[2018-06-20 13:29] VITALS: BP 156/104
[2018-06-20] MEDS: CYCLOBENZAPRINE 10 MG TABLET PO PRN (14:09)
[2018-06-20] MEDS: KETOROLAC 30 MG/1 ML IVPush PRN ×2 (14:25→21:00)
[2018-06-20 19:01] VITALS: BP 139/93
[2018-06-20] MEDS: DAPTOMYCIN 600 MG in SODIUM CHLORIDE 0.9% 100 ML IV SCH (20:49)
[2018-06-21 00:28] VITALS: BP 127/93
[2018-06-21] MEDS: HEPARIN 5,000 UNITS/ML, 1ML SQ SCH ×3 (02:37→17:32)
[2018-06-21] MEDS: OXYcodone IR 5MG TABLET PO PRN ×2 (02:37→17:32)
[2018-06-21] MEDS: CYCLOBENZAPRINE 10 MG TABLET PO PRN (02:37)
[2018-06-21 07:20] VITALS: BP 132/87
[2018-06-21] MEDS: DOCUSATE 100 MG CAPSULE PO SCH ×2 (07:23→20:55)
[2018-06-21] MEDS: LACTOBACILLUS CHEW TABLET PO SCH ×3 (07:23→20:55)
[2018-06-21] MEDS: KETOROLAC 30 MG/1 ML IVPush PRN ×2 (07:23→17:32)
[2018-06-21] MEDS: CALCIUM CARBONATE 500 MG TABLET PO SCH ×2 (07:23→20:55)
[2018-06-21] MEDS ORDERED: LIDODERM 5% PATCH TD ONE (11:30)
[2018-06-21] MEDS ORDERED: DIAZEPAM 5 MG/ML, 2ML IV ONE (11:30)
[2018-06-21 12:50] VITALS: BP 158/115
[2018-06-21] MEDS ORDERED: DIAZEPAM 5 MG/ML, 2ML IV PRN (15:00)
[2018-06-21 20:35] VITALS: BP 132/93
[2018-06-21] MEDS: DAPTOMYCIN 600 MG in SODIUM CHLORIDE 0.9% 100 ML IV SCH (20:55)
[2018-06-21] MEDS: DIAZEPAM 5 MG/ML, 10ML VIAL IV PRN (21:41)
[2018-06-22 01:04] VITALS: BP 158/101
[2018-06-22] MEDS: HEPARIN 5,000 UNITS/ML, 1ML SQ SCH ×3 (03:25→17:56)
[2018-06-22] MEDS: DIAZEPAM 5 MG/ML, 10ML VIAL IV PRN ×3 (05:47→23:19)
[2018-06-22 08:00] VITALS: BP 149/105
[2018-06-22] MEDS: DOCUSATE 100 MG CAPSULE PO SCH ×2 (09:16→21:00)
[2018-06-22] MEDS: CALCIUM CARBONATE 500 MG TABLET PO SCH ×2 (09:16→21:00)
[2018-06-22] MEDS: OXYcodone IR 5MG TABLET PO PRN ×2 (09:16→21:15)
[2018-06-22] MEDS: LACTOBACILLUS CHEW TABLET PO SCH ×3 (09:16→21:00)
[2018-06-22 14:16] VITALS: BP 147/93
[2018-06-22] MEDS: LIDODERM 5% PATCH TD SCH (16:27)
[2018-06-22] MEDS: DAPTOMYCIN 600 MG in SODIUM CHLORIDE 0.9% 100 ML IV SCH (20:30)
[2018-06-22 21:12] VITALS: BP 141/92
[2018-06-23 01:42] VITALS: BP 142/99
[2018-06-23] MEDS: OXYcodone IR 5MG TABLET PO PRN (02:15)
[2018-06-23] MEDS: HEPARIN 5,000 UNITS/ML, 1ML SQ SCH ×3 (02:15→17:04)
[2018-06-23] MEDS: ACETAMINOPHEN 325 MG TABLET PO PRN (02:15)
[2018-06-23 05:08] LABS: BASOPHILS # (AUTO) 0.02 x10^3/uL (0-0.1); BASOPHILS % (AUTO) 0 % (0-1); EOSINOPHILS # (AUTO) 0.32 x10^3/uL (0-0.4); EOSINOPHILS % (AUTO) 5 % (1-7); LYMPHOCYTES # (AUTO) 1.25 x10^3/uL (1-3.4); LYMPHOCYTES % (AUTO) 19 % (22-44); MD NO; MEAN CORPUSCULAR HEMOGLOBIN 31.3 pg (27.0-34.8); MEAN CORPUSCULAR HGB CONC 33.5 g/dL (32.4-35.8); MEAN CORPUSCULAR VOLUME 93.4 fL (80-100); MEAN PLATELET VOLUME 6.8 fL (7.4-10.4); MONOCYTES # (AUTO) 0.65 x10^3/uL (0.2-0.8); MONOCYTES % (AUTO) 10 % (2-9); NEUTROPHILS # (AUTO) 4.27 x10^3/uL (1.8-6.8); NEUTROPHILS % (AUTO) 66 % (42-75); PLATELET COUNT 279 x10^3/uL (130-400); RED BLOOD COUNT 4.13 x10^6/uL (3.82-5.3); RED CELL DISTRIBUTION WIDTH 18.8 % (9.6-15.2)
[2018-06-23 05:19] LABS: CHLORIDE 103 mmol/L (98-107)
[2018-06-23 05:37] LABS: ALANINE AMINOTRANSFERASE 17 U/L (12-78); ALBUMIN 2.3 g/dL (3.4-5.0); ALKALINE PHOSPHATASE 243 U/L (45-117); ANION GAP 7 mmol/L (5-15); BILIRUBIN,TOTAL 1.1 mg/dL (0.2-1.0); CALCIUM 8.7 mg/dL (8.5-10.1); CREATINE KINASE, TOTAL 175 U/L (26-192); CREATININE 1.02 mg/dL (0.55-1.02); TOTAL PROTEIN 6.9 g/dL (6.4-8.2)
[2018-06-23 05:40] LABS: HCT (SEDRATE) 38.6 % (34.6-47.8)
[2018-06-23 07:53] VITALS: BP 160/98
[2018-06-23] MEDS: CALCIUM CARBONATE 500 MG TABLET PO SCH ×2 (10:04→20:53)
[2018-06-23] MEDS: DOCUSATE 100 MG CAPSULE PO SCH ×2 (10:04→20:53)
[2018-06-23] MEDS: LACTOBACILLUS CHEW TABLET PO SCH ×3 (10:04→20:54)
[2018-06-23] MEDS: DIAZEPAM 5 MG/ML, 10ML VIAL IV PRN ×2 (10:06→20:53)
[2018-06-23] MEDS: POTASSIUM CHLORIDE 10 MEQ TABLET.ER PO SCH (10:24)
[2018-06-23] MEDS: FUROSEMIDE 20 MG TABLET PO SCH (10:25)
[2018-06-23 15:06] VITALS: BP 138/96
[2018-06-23] MEDS: LIDODERM 5% PATCH TD SCH (17:03)
[2018-06-23 18:28] VITALS: BP 178/128
[2018-06-23 20:30] VITALS: BP 154/94
[2018-06-23] MEDS: DAPTOMYCIN 600 MG in SODIUM CHLORIDE 0.9% 100 ML IV SCH (20:53)
[2018-06-24 01:48] VITALS: BP 153/104
[2018-06-24] MEDS: OXYcodone IR 5MG TABLET PO PRN ×4 (02:38→20:34)
[2018-06-24] MEDS: HEPARIN 5,000 UNITS/ML, 1ML SQ SCH ×3 (02:38→20:34)
[2018-06-24 02:49] VITALS: BP 157/94
[2018-06-24] MEDS: DIAZEPAM 5 MG/ML, 10ML VIAL IV PRN ×2 (05:33→16:40)
[2018-06-24 07:45] VITALS: BP 164/108
[2018-06-24] MEDS: CALCIUM CARBONATE 500 MG TABLET PO SCH ×2 (08:13→20:34)
[2018-06-24] MEDS: POTASSIUM CHLORIDE 10 MEQ TABLET.ER PO SCH (08:13)
[2018-06-24] MEDS: DOCUSATE 100 MG CAPSULE PO SCH ×2 (08:13→20:34)
[2018-06-24] MEDS: FUROSEMIDE 20 MG TABLET PO SCH (08:13)
[2018-06-24] MEDS: LACTOBACILLUS CHEW TABLET PO SCH ×3 (08:13→20:35)
[2018-06-24] MEDS ORDERED: FLU VACCINE PER PHARMACY IM ONE (12:00)
[2018-06-24 15:23] VITALS: BP 164/94
[2018-06-24] MEDS: LIDODERM 5% PATCH TD SCH (16:40)
[2018-06-24 20:00] VITALS: BP 138/93
[2018-06-24] MEDS: DAPTOMYCIN 600 MG in SODIUM CHLORIDE 0.9% 100 ML IV SCH (20:34)
[2018-06-25 01:00] VITALS: BP 125/96
[2018-06-25] MEDS: DIAZEPAM 5 MG/ML, 10ML VIAL IV PRN ×3 (04:10→23:19)
[2018-06-25] MEDS: HEPARIN 5,000 UNITS/ML, 1ML SQ SCH ×3 (04:10→21:16)
[2018-06-25 06:53] LABS: ANION GAP 5 mmol/L (5-15); CALCIUM 8.6 mg/dL (8.5-10.1); CHLORIDE 100 mmol/L (98-107); CREATININE 0.97 mg/dL (0.55-1.02)
[2018-06-25 07:35] VITALS: BP 143/88
[2018-06-25] MEDS: POTASSIUM CHLORIDE 10 MEQ TABLET.ER PO SCH (08:55)
[2018-06-25] MEDS: CALCIUM CARBONATE 500 MG TABLET PO SCH ×2 (08:55→21:16)
[2018-06-25] MEDS: LACTOBACILLUS CHEW TABLET PO SCH ×3 (08:55→21:16)
[2018-06-25] MEDS: DOCUSATE 100 MG CAPSULE PO SCH ×2 (08:55→21:16)
[2018-06-25] MEDS: FUROSEMIDE 20 MG TABLET PO SCH (08:55)
[2018-06-25] MEDS: OXYcodone IR 5MG TABLET PO PRN ×3 (09:03→21:16)
[2018-06-25 15:46] VITALS: BP 138/98
[2018-06-25] MEDS: LIDODERM 5% PATCH TD SCH (17:47)
[2018-06-25 19:18] VITALS: BP 149/107
[2018-06-25] MEDS: DAPTOMYCIN 600 MG in SODIUM CHLORIDE 0.9% 100 ML IV SCH (21:16)
[2018-06-26 02:04] VITALS: BP 124/89
[2018-06-26] MEDS: OXYcodone IR 5MG TABLET PO PRN ×4 (02:52→20:57)
[2018-06-26] MEDS: ACETAMINOPHEN 325 MG TABLET PO PRN ×2 (05:31→23:53)
[2018-06-26] MEDS: HEPARIN 5,000 UNITS/ML, 1ML SQ SCH ×3 (05:31→20:56)
[2018-06-26 08:04] VITALS: BP 129/91
[2018-06-26] MEDS: LACTOBACILLUS CHEW TABLET PO SCH ×3 (09:08→20:56)
[2018-06-26] MEDS: DOCUSATE 100 MG CAPSULE PO SCH ×2 (09:08→20:57)
[2018-06-26] MEDS: CALCIUM CARBONATE 500 MG TABLET PO SCH ×2 (09:08→20:56)
[2018-06-26] MEDS: POTASSIUM CHLORIDE 10 MEQ TABLET.ER PO SCH (09:08)
[2018-06-26] MEDS: FUROSEMIDE 20 MG TABLET PO SCH (09:08)
[2018-06-26] MEDS: DIAZEPAM 5 MG/ML, 10ML VIAL IV PRN ×2 (09:08→17:54)
[2018-06-26 13:44] VITALS: BP 133/93
[2018-06-26] MEDS: LIDODERM 5% PATCH TD SCH (16:59)
[2018-06-26 20:07] VITALS: BP 133/95
[2018-06-26] MEDS: DAPTOMYCIN 600 MG in SODIUM CHLORIDE 0.9% 100 ML IV SCH (20:57)
[2018-06-27 00:34] VITALS: BP 140/103
[2018-06-27] MEDS: DIAZEPAM 5 MG/ML, 10ML VIAL IV PRN (01:58)
[2018-06-27 02:05] VITALS: BP 134/90
[2018-06-27] MEDS: HEPARIN 5,000 UNITS/ML, 1ML SQ SCH ×3 (05:07→21:22)
[2018-06-27] MEDS: OXYcodone IR 5MG TABLET PO PRN ×4 (05:07→20:46)
[2018-06-27 06:01] LABS: ANION GAP 6 mmol/L (5-15); CALCIUM 8.4 mg/dL (8.5-10.1); CHLORIDE 97 mmol/L (98-107); CREATININE 0.86 mg/dL (0.55-1.02)
[2018-06-27 07:45] VITALS: BP 146/94
[2018-06-27] MEDS: CALCIUM CARBONATE 500 MG TABLET PO SCH ×2 (08:53→20:46)
[2018-06-27] MEDS: LACTOBACILLUS CHEW TABLET PO SCH ×3 (08:53→20:46)
[2018-06-27] MEDS: DOCUSATE 100 MG CAPSULE PO SCH ×2 (08:53→20:47)
[2018-06-27] MEDS: POTASSIUM CHLORIDE 10 MEQ TABLET.ER PO SCH (08:54)
[2018-06-27] MEDS: FUROSEMIDE 20 MG TABLET PO SCH (08:56)
[2018-06-27] MEDS ORDERED: DIAZEPAM 5 MG/ML, 10ML VIAL IV PRN (14:00)
[2018-06-27 14:30] VITALS: BP 138/88
[2018-06-27] MEDS ORDERED: DIAZEPAM 5 MG/ML, 2ML IV PRN (15:30)
[2018-06-27 18:31] VITALS: BP 154/105
[2018-06-27] MEDS: LIDODERM 5% PATCH TD SCH (20:50)
[2018-06-27] MEDS: DAPTOMYCIN 600 MG in SODIUM CHLORIDE 0.9% 100 ML IV SCH (21:21)
[2018-06-27 23:20] VITALS: BP 133/90
[2018-06-28 02:17] VITALS: BP 134/88
[2018-06-28] MEDS: HEPARIN 5,000 UNITS/ML, 1ML SQ SCH ×3 (04:25→20:56)
[2018-06-28] MEDS ORDERED: DIAZEPAM 5 MG/ML, 10ML VIAL IVPush PRN (05:00)
[2018-06-28] MEDS: DIAZEPAM 5 MG/ML, 10ML VIAL IVPush PRN ×2 (05:07→20:07)
[2018-06-28 05:37] LABS: BASOPHILS # (AUTO) 0.06 x10^3/uL (0-0.1); BASOPHILS % (AUTO) 1 % (0-1); EOSINOPHILS # (AUTO) 0.27 x10^3/uL (0-0.4); EOSINOPHILS % (AUTO) 3 % (1-7); LYMPHOCYTES # (AUTO) 1.44 x10^3/uL (1-3.4); LYMPHOCYTES % (AUTO) 18 % (22-44); MD NO; MEAN CORPUSCULAR HEMOGLOBIN 31.1 pg (27.0-34.8); MEAN CORPUSCULAR HGB CONC 33.2 g/dL (32.4-35.8); MEAN CORPUSCULAR VOLUME 93.7 fL (80-100); MEAN PLATELET VOLUME 6.5 fL (7.4-10.4); MONOCYTES # (AUTO) 1.04 x10^3/uL (0.2-0.8); MONOCYTES % (AUTO) 13 % (2-9); NEUTROPHILS # (AUTO) 5.33 x10^3/uL (1.8-6.8); NEUTROPHILS % (AUTO) 66 % (42-75); PLATELET COUNT 411 x10^3/uL (130-400); RED BLOOD COUNT 4.45 x10^6/uL (3.82-5.3); RED CELL DISTRIBUTION WIDTH 18.6 % (9.6-15.2)
[2018-06-28 05:38] LABS: ALBUMIN 2.2 g/dL (3.4-5.0); ANION GAP 4 mmol/L (5-15); CALCIUM 8.5 mg/dL (8.5-10.1); CHLORIDE 98 mmol/L (98-107); CREATININE 0.87 mg/dL (0.55-1.02)
[2018-06-28 07:12] VITALS: BP 139/100
[2018-06-28] MEDS: POTASSIUM CHLORIDE 10 MEQ TABLET.ER PO SCH (09:25)
[2018-06-28] MEDS: LACTOBACILLUS CHEW TABLET PO SCH ×3 (09:25→20:36)
[2018-06-28] MEDS: CALCIUM CARBONATE 500 MG TABLET PO SCH ×2 (09:25→20:36)
[2018-06-28] MEDS: OXYcodone IR 5MG TABLET PO PRN ×2 (09:25→15:21)
[2018-06-28] MEDS: DOCUSATE 100 MG CAPSULE PO SCH ×2 (09:25→20:55)
[2018-06-28 12:58] VITALS: BP 157/106
[2018-06-28] MEDS: BACLOFEN 10 MG TABLET PO PRN (13:44)
[2018-06-28] MEDS: LIDODERM 5% PATCH TD SCH (16:00)
[2018-06-28 19:33] VITALS: BP 140/96
[2018-06-28] MEDS: DAPTOMYCIN 600 MG in SODIUM CHLORIDE 0.9% 100 ML IV SCH (20:35)
[2018-06-29 01:33] VITALS: BP 146/92
[2018-06-29] MEDS: HEPARIN 5,000 UNITS/ML, 1ML SQ SCH ×3 (04:26→21:30)
[2018-06-29 05:28] LABS: ANION GAP 6 mmol/L (5-15); CALCIUM 8.9 mg/dL (8.5-10.1); CHLORIDE 100 mmol/L (98-107); CREATININE 0.87 mg/dL (0.55-1.02)
[2018-06-29 07:06] VITALS: BP 134/89
[2018-06-29] MEDS: DIAZEPAM 5 MG/ML, 10ML VIAL IVPush PRN ×2 (09:04→21:31)
[2018-06-29] MEDS: LACTOBACILLUS CHEW TABLET PO SCH ×3 (09:04→21:29)
[2018-06-29] MEDS: CALCIUM CARBONATE 500 MG TABLET PO SCH ×2 (09:04→21:29)
[2018-06-29] MEDS: DOCUSATE 100 MG CAPSULE PO SCH ×2 (09:04→21:29)
[2018-06-29] MEDS: POTASSIUM CHLORIDE 10 MEQ TABLET.ER PO SCH (09:04)
[2018-06-29 14:00] VITALS: BP 156/92
[2018-06-29] MEDS: LIDODERM 5% PATCH TD SCH (17:32)
[2018-06-29 18:28] VITALS: BP 143/99
[2018-06-29 20:29] VITALS: BP 145/96
[2018-06-29] MEDS: DAPTOMYCIN 600 MG in SODIUM CHLORIDE 0.9% 100 ML IV SCH (21:30)
[2018-06-30 00:34] VITALS: BP 142/100
[2018-06-30] MEDS: BACLOFEN 10 MG TABLET PO PRN (02:19)
[2018-06-30] MEDS: HEPARIN 5,000 UNITS/ML, 1ML SQ SCH ×3 (05:00→20:39)
[2018-06-30 06:49] LABS: BASOPHILS # (AUTO) 0.05 x10^3/uL (0-0.1); BASOPHILS % (AUTO) 1 % (0-1); EOSINOPHILS # (AUTO) 0.22 x10^3/uL (0-0.4); EOSINOPHILS % (AUTO) 2 % (1-7); LYMPHOCYTES # (AUTO) 1.32 x10^3/uL (1-3.4); LYMPHOCYTES % (AUTO) 14 % (22-44); MD NO; MEAN CORPUSCULAR HEMOGLOBIN 31.5 pg (27.0-34.8); MEAN CORPUSCULAR HGB CONC 33.7 g/dL (32.4-35.8); MEAN CORPUSCULAR VOLUME 93.4 fL (80-100); MEAN PLATELET VOLUME 6.3 fL (7.4-10.4); MONOCYTES # (AUTO) 0.89 x10^3/uL (0.2-0.8); MONOCYTES % (AUTO) 10 % (2-9); NEUTROPHILS # (AUTO) 6.92 x10^3/uL (1.8-6.8); NEUTROPHILS % (AUTO) 74 % (42-75); PLATELET COUNT 429 x10^3/uL (130-400); RED BLOOD COUNT 4.49 x10^6/uL (3.82-5.3); RED CELL DISTRIBUTION WIDTH 18.7 % (9.6-15.2)
[2018-06-30 07:33] VITALS: BP 148/102
[2018-06-30 08:06] LABS: ALANINE AMINOTRANSFERASE 25 U/L (12-78); ALBUMIN 2.2 g/dL (3.4-5.0); ANION GAP 8 mmol/L (5-15); CALCIUM 9.2 mg/dL (8.5-10.1); CHLORIDE 100 mmol/L (98-107)
[2018-06-30 08:14] LABS: ALKALINE PHOSPHATASE 349 U/L (45-117); BILIRUBIN,TOTAL 1.2 mg/dL (0.2-1.0); CREATINE KINASE, TOTAL 198 U/L (26-192); CREATININE 0.82 mg/dL (0.55-1.02); TOTAL PROTEIN 7.7 g/dL (6.4-8.2)
[2018-06-30] MEDS: CALCIUM CARBONATE 500 MG TABLET PO SCH ×2 (09:07→20:39)
[2018-06-30] MEDS: DOCUSATE 100 MG CAPSULE PO SCH ×2 (09:07→20:39)
[2018-06-30] MEDS: OXYcodone IR 5MG TABLET PO PRN ×2 (09:08→20:39)
[2018-06-30] MEDS: POTASSIUM CHLORIDE 10 MEQ TABLET.ER PO SCH (09:08)
[2018-06-30] MEDS: LACTOBACILLUS CHEW TABLET PO SCH ×3 (09:09→20:39)
[2018-06-30 13:26] VITALS: BP 140/97
[2018-06-30] MEDS ORDERED: HEMORRHOIDAL OINT, 28 GM (PREP H) RC PRN (14:00)
[2018-06-30] MEDS: DIAZEPAM 5 MG/ML, 10ML VIAL IVPush PRN (14:10)
[2018-06-30] MEDS: LIDODERM 5% PATCH TD SCH (18:24)
[2018-06-30 20:28] VITALS: BP 148/101
[2018-06-30] MEDS: DAPTOMYCIN 600 MG in SODIUM CHLORIDE 0.9% 100 ML IV SCH (20:39)
[2018-06-30] MEDS: POLYETHYLENE GLYCOL 17 GM PACKET PO PRN (21:38)
[2018-07-01 03:40] VITALS: BP 143/101
[2018-07-01] MEDS: DIAZEPAM 5 MG/ML, 10ML VIAL IVPush PRN ×2 (03:57→16:40)
[2018-07-01] MEDS: HEPARIN 5,000 UNITS/ML, 1ML SQ SCH ×2 (06:19→14:13)
[2018-07-01 07:25] VITALS: BP 123/89
[2018-07-01] MEDS: CALCIUM CARBONATE 500 MG TABLET PO SCH ×2 (09:51→20:54)
[2018-07-01] MEDS: BACLOFEN 10 MG TABLET PO PRN (09:51)
[2018-07-01] MEDS: POTASSIUM CHLORIDE 10 MEQ TABLET.ER PO SCH (09:51)
[2018-07-01] MEDS: LACTOBACILLUS CHEW TABLET PO SCH ×3 (09:51→20:54)
[2018-07-01] MEDS: DOCUSATE 100 MG CAPSULE PO SCH ×2 (09:51→20:54)
[2018-07-01 14:36] VITALS: BP 136/90
[2018-07-01] MEDS: OXYcodone IR 5MG TABLET PO PRN (16:40)
[2018-07-01 20:47] VITALS: BP 148/103
[2018-07-01] MEDS: DAPTOMYCIN 600 MG in SODIUM CHLORIDE 0.9% 100 ML IV SCH (20:54)
[2018-07-01] MEDS: LIDODERM 5% PATCH TD SCH (20:55)
[2018-07-02] MEDS: HEPARIN 5,000 UNITS/ML, 1ML SQ SCH ×3 (00:53→18:01)
[2018-07-02 00:56] VITALS: BP 137/94
[2018-07-02] MEDS: OXYcodone IR 5MG TABLET PO PRN ×3 (01:00→21:11)
[2018-07-02 08:49] VITALS: BP 144/90
[2018-07-02] MEDS: DIAZEPAM 5 MG/ML, 10ML VIAL IVPush PRN ×2 (09:35→21:13)
[2018-07-02] MEDS: DOCUSATE 100 MG CAPSULE PO SCH ×2 (09:38→21:10)
[2018-07-02] MEDS: LACTOBACILLUS CHEW TABLET PO SCH ×3 (09:39→21:10)
[2018-07-02] MEDS: POTASSIUM CHLORIDE 10 MEQ TABLET.ER PO SCH (09:40)
[2018-07-02] MEDS: CALCIUM CARBONATE 500 MG TABLET PO SCH ×2 (09:41→21:10)
[2018-07-02 12:30] VITALS: BP 139/99
[2018-07-02] MEDS: IBUPROFEN 200 MG TABLET PO PRN (13:07)
[2018-07-02] MEDS: BACLOFEN 10 MG TABLET PO PRN (18:01)
[2018-07-02 19:36] VITALS: BP 133/90
[2018-07-02] MEDS: DAPTOMYCIN 600 MG in SODIUM CHLORIDE 0.9% 100 ML IV SCH (21:08)
[2018-07-02] MEDS: LIDODERM 5% PATCH TD SCH (21:10)
[2018-07-03] MEDS: HEPARIN 5,000 UNITS/ML, 1ML SQ SCH ×3 (00:51→20:21)
[2018-07-03 01:18] VITALS: BP 140/102
[2018-07-03] MEDS: OXYcodone IR 5MG TABLET PO PRN ×3 (05:27→20:20)
[2018-07-03 07:27] VITALS: BP 146/98
[2018-07-03] MEDS: DOCUSATE 100 MG CAPSULE PO SCH ×2 (13:12→20:20)
[2018-07-03] MEDS: LACTOBACILLUS CHEW TABLET PO SCH ×3 (13:13→20:20)
[2018-07-03] MEDS: CALCIUM CARBONATE 500 MG TABLET PO SCH ×2 (13:14→20:20)
[2018-07-03] MEDS: POTASSIUM CHLORIDE 10 MEQ TABLET.ER PO SCH (13:16)
[2018-07-03 14:46] VITALS: BP 140/104
[2018-07-03 19:42] VITALS: BP 144/95
[2018-07-03] MEDS: LIDODERM 5% PATCH TD SCH (21:00)
[2018-07-03] MEDS: DAPTOMYCIN 600 MG in SODIUM CHLORIDE 0.9% 100 ML IV SCH (21:38)
[2018-07-03] MEDS: DIAZEPAM 5 MG/ML, 10ML VIAL IVPush PRN (21:39)
[2018-07-04 01:04] VITALS: BP 132/86
[2018-07-04] MEDS: OXYcodone IR 5MG TABLET PO PRN (03:52)
[2018-07-04] MEDS: BACLOFEN 10 MG TABLET PO PRN ×3 (03:52→21:33)
[2018-07-04] MEDS: HEPARIN 5,000 UNITS/ML, 1ML SQ SCH ×2 (04:47→17:56)
[2018-07-04 07:14] VITALS: BP 145/82
[2018-07-04] MEDS: LACTOBACILLUS CHEW TABLET PO SCH ×3 (09:47→21:33)
[2018-07-04] MEDS: POTASSIUM CHLORIDE 10 MEQ TABLET.ER PO SCH (09:47)
[2018-07-04] MEDS: CALCIUM CARBONATE 500 MG TABLET PO SCH ×2 (09:47→21:33)
[2018-07-04] MEDS: DOCUSATE 100 MG CAPSULE PO SCH ×2 (09:47→21:33)
[2018-07-04 13:55] VITALS: BP 152/68
[2018-07-04] MEDS: DIAZEPAM 5 MG/ML, 10ML VIAL IVPush PRN (20:02)
[2018-07-04 20:26] VITALS: BP 136/87
[2018-07-04] MEDS: LIDODERM 5% PATCH TD SCH (21:38)
[2018-07-04] MEDS: DAPTOMYCIN 600 MG in SODIUM CHLORIDE 0.9% 100 ML IV SCH (21:45)
[2018-07-05] MEDS: HEPARIN 5,000 UNITS/ML, 1ML SQ SCH ×3 (00:39→16:58)
[2018-07-05 01:45] VITALS: BP 133/91
[2018-07-05 07:59] VITALS: BP 126/87
[2018-07-05] MEDS: CALCIUM CARBONATE 500 MG TABLET PO SCH ×2 (11:28→21:23)
[2018-07-05] MEDS: POTASSIUM CHLORIDE 10 MEQ TABLET.ER PO SCH (11:28)
[2018-07-05] MEDS: BACLOFEN 10 MG TABLET PO PRN ×2 (11:28→19:36)
[2018-07-05] MEDS: LACTOBACILLUS CHEW TABLET PO SCH ×3 (11:28→21:23)
[2018-07-05] MEDS: DOCUSATE 100 MG CAPSULE PO SCH ×2 (11:29→21:23)
[2018-07-05 13:37] VITALS: BP 148/94
[2018-07-05] MEDS: IBUPROFEN 200 MG TABLET PO PRN (15:03)
[2018-07-05] MEDS: DIAZEPAM 5 MG/ML, 10ML VIAL IVPush PRN (21:22)
[2018-07-05] MEDS: LIDODERM 5% PATCH TD SCH (21:23)
[2018-07-05] MEDS: DAPTOMYCIN 600 MG in SODIUM CHLORIDE 0.9% 100 ML IV SCH (21:23)
[2018-07-05 21:52] VITALS: BP 129/91
[2018-07-06 02:15] VITALS: BP 131/97
[2018-07-06] MEDS: HEPARIN 5,000 UNITS/ML, 1ML SQ SCH ×3 (02:22→17:15)
[2018-07-06 07:03] VITALS: BP 152/99
[2018-07-06] MEDS: DOCUSATE 100 MG CAPSULE PO SCH ×2 (07:50→20:39)
[2018-07-06] MEDS: POTASSIUM CHLORIDE 10 MEQ TABLET.ER PO SCH (07:50)
[2018-07-06] MEDS: LACTOBACILLUS CHEW TABLET PO SCH ×3 (07:51→20:39)
[2018-07-06] MEDS: CALCIUM CARBONATE 500 MG TABLET PO SCH ×2 (07:51→20:39)
[2018-07-06] MEDS: OXYcodone IR 5MG TABLET PO PRN ×3 (07:51→22:01)
[2018-07-06] MEDS: BACLOFEN 10 MG TABLET PO PRN ×2 (07:51→17:15)
[2018-07-06] MEDS: POLYETHYLENE GLYCOL 17 GM PACKET PO SCH (09:00)
[2018-07-06 14:00] VITALS: BP 147/81
[2018-07-06 19:35] VITALS: BP 130/90
[2018-07-06] MEDS: DAPTOMYCIN 600 MG in SODIUM CHLORIDE 0.9% 100 ML IV SCH (20:39)
[2018-07-06] MEDS: LIDODERM 5% PATCH TD SCH (20:39)
[2018-07-06] MEDS: IBUPROFEN 200 MG TABLET PO PRN (22:01)
[2018-07-07] MEDS: HEPARIN 5,000 UNITS/ML, 1ML SQ SCH ×3 (00:43→16:30)
[2018-07-07 02:22] VITALS: BP 143/94
[2018-07-07 03:15] LABS: BASOPHILS # (AUTO) 0.06 x10^3/uL (0-0.1); BASOPHILS % (AUTO) 1 % (0-1); EOSINOPHILS # (AUTO) 0.29 x10^3/uL (0-0.4); EOSINOPHILS % (AUTO) 3 % (1-7); HCT (SEDRATE) 42.4 % (34.6-47.8); LYMPHOCYTES # (AUTO) 1.85 x10^3/uL (1-3.4); LYMPHOCYTES % (AUTO) 20 % (22-44); MD NO; MEAN CORPUSCULAR HEMOGLOBIN 31.3 pg (27.0-34.8); MEAN CORPUSCULAR HGB CONC 33.5 g/dL (32.4-35.8); MEAN CORPUSCULAR VOLUME 93.6 fL (80-100); MEAN PLATELET VOLUME 6.3 fL (7.4-10.4); MONOCYTES # (AUTO) 0.78 x10^3/uL (0.2-0.8); MONOCYTES % (AUTO) 9 % (2-9); NEUTROPHILS # (AUTO) 6.12 x10^3/uL (1.8-6.8); NEUTROPHILS % (AUTO) 67 % (42-75); PLATELET COUNT 501 x10^3/uL (130-400); RED BLOOD COUNT 4.53 x10^6/uL (3.82-5.3); RED CELL DISTRIBUTION WIDTH 18.8 % (9.6-15.2)
[2018-07-07 03:28] LABS: ALANINE AMINOTRANSFERASE 30 U/L (12-78); ALBUMIN 1.9 g/dL (3.4-5.0); ANION GAP 9 mmol/L (5-15); CALCIUM 8.6 mg/dL (8.5-10.1); CHLORIDE 105 mmol/L (98-107); CREATININE 0.87 mg/dL (0.55-1.02)
[2018-07-07 03:35] LABS: ALKALINE PHOSPHATASE 408 U/L (45-117); BILIRUBIN,TOTAL 0.7 mg/dL (0.2-1.0); CREATINE KINASE, TOTAL 304 U/L (26-192); TOTAL PROTEIN 7.6 g/dL (6.4-8.2)
[2018-07-07 06:52] VITALS: BP 139/94
[2018-07-07] MEDS: POLYETHYLENE GLYCOL 17 GM PACKET PO SCH (09:00)
[2018-07-07] MEDS: LACTOBACILLUS CHEW TABLET PO SCH ×3 (09:10→20:53)
[2018-07-07] MEDS: POTASSIUM CHLORIDE 10 MEQ TABLET.ER PO SCH (09:10)
[2018-07-07] MEDS: DOCUSATE 100 MG CAPSULE PO SCH ×2 (09:10→20:53)
[2018-07-07] MEDS: CALCIUM CARBONATE 500 MG TABLET PO SCH ×2 (09:11→20:53)
[2018-07-07] MEDS: OXYcodone IR 5MG TABLET PO PRN ×2 (09:11→20:53)
[2018-07-07 12:21] VITALS: BP 130/90
[2018-07-07] MEDS: IBUPROFEN 200 MG TABLET PO PRN (16:30)
[2018-07-07 19:55] VITALS: BP 160/111
[2018-07-07] MEDS: DAPTOMYCIN 600 MG in SODIUM CHLORIDE 0.9% 100 ML IV SCH (20:53)
[2018-07-07] MEDS: LIDODERM 5% PATCH TD SCH (20:54)
[2018-07-08] MEDS: HEPARIN 5,000 UNITS/ML, 1ML SQ SCH ×4 (00:51→23:30)
[2018-07-08 03:36] VITALS: BP 135/90
[2018-07-08 04:45] LABS: BASOPHILS # (AUTO) 0.06 x10^3/uL (0-0.1); BASOPHILS % (AUTO) 1 % (0-1); EOSINOPHILS # (AUTO) 0.27 x10^3/uL (0-0.4); EOSINOPHILS % (AUTO) 3 % (1-7); LYMPHOCYTES # (AUTO) 1.78 x10^3/uL (1-3.4); LYMPHOCYTES % (AUTO) 21 % (22-44); MD NO; MEAN CORPUSCULAR HEMOGLOBIN 31.3 pg (27.0-34.8); MEAN CORPUSCULAR HGB CONC 33.4 g/dL (32.4-35.8); MEAN CORPUSCULAR VOLUME 93.6 fL (80-100); MEAN PLATELET VOLUME 6.1 fL (7.4-10.4); MONOCYTES # (AUTO) 0.72 x10^3/uL (0.2-0.8); MONOCYTES % (AUTO) 9 % (2-9); NEUTROPHILS # (AUTO) 5.49 x10^3/uL (1.8-6.8); NEUTROPHILS % (AUTO) 66 % (42-75); PLATELET COUNT 465 x10^3/uL (130-400); RED BLOOD COUNT 4.33 x10^6/uL (3.82-5.3); RED CELL DISTRIBUTION WIDTH 19.1 % (9.6-15.2)
[2018-07-08 04:57] LABS: ALANINE AMINOTRANSFERASE 29 U/L (12-78); ALBUMIN 2.1 g/dL (3.4-5.0); ANION GAP 7 mmol/L (5-15); CALCIUM 8.5 mg/dL (8.5-10.1); CHLORIDE 106 mmol/L (98-107); CREATININE 0.87 mg/dL (0.55-1.02)
[2018-07-08 05:00] LABS: ALKALINE PHOSPHATASE 384 U/L (45-117); BILIRUBIN,TOTAL 0.8 mg/dL (0.2-1.0); TOTAL PROTEIN 7.5 g/dL (6.4-8.2)
[2018-07-08 07:00] VITALS: BP 136/92
[2018-07-08] MEDS: DOCUSATE 100 MG CAPSULE PO SCH ×2 (09:19→21:04)
[2018-07-08] MEDS: OXYcodone IR 5MG TABLET PO PRN ×2 (09:20→21:03)
[2018-07-08] MEDS: POTASSIUM CHLORIDE 10 MEQ TABLET.ER PO SCH (09:20)
[2018-07-08] MEDS: LACTOBACILLUS CHEW TABLET PO SCH ×3 (09:20→21:03)
[2018-07-08] MEDS: CALCIUM CARBONATE 500 MG TABLET PO SCH ×2 (09:20→21:04)
[2018-07-08] MEDS: POLYETHYLENE GLYCOL 17 GM PACKET PO SCH (09:21)
[2018-07-08 16:59] VITALS: BP 154/97
[2018-07-08] MEDS: IBUPROFEN 200 MG TABLET PO PRN (17:04)
[2018-07-08 19:24] VITALS: BP 136/93
[2018-07-08] MEDS: DAPTOMYCIN 600 MG in SODIUM CHLORIDE 0.9% 100 ML IV SCH (21:03)
[2018-07-08] MEDS: LIDODERM 5% PATCH TD SCH (21:04)
[2018-07-09 02:50] VITALS: BP 152/108
[2018-07-09 03:29] LABS: BASOPHILS # (AUTO) 0.14 x10^3/uL (0-0.1); BASOPHILS % (AUTO) 2 % (0-1); EOSINOPHILS # (AUTO) 0.28 x10^3/uL (0-0.4); EOSINOPHILS % (AUTO) 4 % (1-7); LYMPHOCYTES # (AUTO) 1.74 x10^3/uL (1-3.4); LYMPHOCYTES % (AUTO) 21 % (22-44); MD NO; MEAN CORPUSCULAR HGB CONC 33.5 g/dL (32.4-35.8); MEAN CORPUSCULAR VOLUME 92.8 fL (80-100); MEAN PLATELET VOLUME 6.3 fL (7.4-10.4); MONOCYTES # (AUTO) 0.73 x10^3/uL (0.2-0.8); MONOCYTES % (AUTO) 9 % (2-9); NEUTROPHILS # (AUTO) 5.22 x10^3/uL (1.8-6.8); NEUTROPHILS % (AUTO) 64 % (42-75); PLATELET COUNT 447 x10^3/uL (130-400); RED BLOOD COUNT 4.33 x10^6/uL (3.82-5.3); RED CELL DISTRIBUTION WIDTH 18.6 % (9.6-15.2)
[2018-07-09 03:41] LABS: ALANINE AMINOTRANSFERASE 30 U/L (12-78); ALBUMIN 2.1 g/dL (3.4-5.0); ANION GAP 5 mmol/L (5-15); CALCIUM 8.9 mg/dL (8.5-10.1); CHLORIDE 104 mmol/L (98-107); CREATININE 0.84 mg/dL (0.55-1.02)
[2018-07-09 03:43] LABS: ALKALINE PHOSPHATASE 371 U/L (45-117); BILIRUBIN,TOTAL 0.8 mg/dL (0.2-1.0); TOTAL PROTEIN 7.4 g/dL (6.4-8.2)
[2018-07-09 06:48] VITALS: BP 143/95
[2018-07-09] MEDS: POLYETHYLENE GLYCOL 17 GM PACKET PO SCH (09:00)
[2018-07-09] MEDS: DOCUSATE 100 MG CAPSULE PO SCH ×2 (10:28→21:21)
[2018-07-09] MEDS: POTASSIUM CHLORIDE 10 MEQ TABLET.ER PO SCH (10:29)
[2018-07-09] MEDS: BACLOFEN 10 MG TABLET PO PRN (10:29)
[2018-07-09] MEDS: LACTOBACILLUS CHEW TABLET PO SCH ×3 (10:29→21:21)
[2018-07-09] MEDS: CALCIUM CARBONATE 500 MG TABLET PO SCH ×2 (10:29→21:21)
[2018-07-09] MEDS: HEPARIN 5,000 UNITS/ML, 1ML SQ SCH ×2 (10:29→17:30)
[2018-07-09 12:15] VITALS: BP 144/101
[2018-07-09 12:19] VITALS: BP 96/62
[2018-07-09 19:20] VITALS: BP 132/97
[2018-07-09] MEDS: DAPTOMYCIN 600 MG in SODIUM CHLORIDE 0.9% 100 ML IV SCH (21:21)
[2018-07-09] MEDS: OXYcodone IR 5MG TABLET PO PRN (21:21)
[2018-07-09] MEDS: LIDODERM 5% PATCH TD SCH (21:21)
[2018-07-10] MEDS: HEPARIN 5,000 UNITS/ML, 1ML SQ SCH ×3 (00:52→18:35)
[2018-07-10 02:05] VITALS: BP 134/98
[2018-07-10 07:05] VITALS: BP 126/91
[2018-07-10] MEDS: LACTOBACILLUS CHEW TABLET PO SCH ×3 (08:40→21:13)
[2018-07-10] MEDS: OXYcodone IR 5MG TABLET PO PRN ×2 (08:40→18:36)
[2018-07-10] MEDS: POTASSIUM CHLORIDE 10 MEQ TABLET.ER PO SCH (08:40)
[2018-07-10] MEDS: POLYETHYLENE GLYCOL 17 GM PACKET PO SCH (08:40)
[2018-07-10] MEDS: DOCUSATE 100 MG CAPSULE PO SCH ×2 (08:40→21:12)
[2018-07-10] MEDS: CALCIUM CARBONATE 500 MG TABLET PO SCH ×2 (08:41→21:12)
[2018-07-10 12:49] VITALS: BP 136/93
[2018-07-10 19:49] VITALS: BP 137/94
[2018-07-10] MEDS: DAPTOMYCIN 600 MG in SODIUM CHLORIDE 0.9% 100 ML IV SCH (21:12)
[2018-07-10] MEDS: LIDODERM 5% PATCH TD SCH (21:13)
[2018-07-11] MEDS: HEPARIN 5,000 UNITS/ML, 1ML SQ SCH ×3 (00:57→17:31)
[2018-07-11 01:20] VITALS: BP 136/96
[2018-07-11 06:58] VITALS: BP 134/89
[2018-07-11] MEDS: OXYcodone IR 5MG TABLET PO PRN ×2 (08:17→17:31)
[2018-07-11] MEDS: CALCIUM CARBONATE 500 MG TABLET PO SCH ×2 (08:17→21:33)
[2018-07-11] MEDS: DOCUSATE 100 MG CAPSULE PO SCH ×2 (08:17→21:33)
[2018-07-11] MEDS: POTASSIUM CHLORIDE 10 MEQ TABLET.ER PO SCH (08:17)
[2018-07-11] MEDS: POLYETHYLENE GLYCOL 17 GM PACKET PO SCH (08:18)
[2018-07-11] MEDS: LACTOBACILLUS CHEW TABLET PO SCH ×3 (08:18→21:33)
[2018-07-11 12:11] VITALS: BP 126/92
[2018-07-11 18:25] VITALS: BP 128/92
[2018-07-11] MEDS: DAPTOMYCIN 600 MG in SODIUM CHLORIDE 0.9% 100 ML IV SCH (21:33)
[2018-07-11] MEDS: ACETAMINOPHEN 325 MG TABLET PO PRN (21:34)
[2018-07-11] MEDS: LIDODERM 5% PATCH TD SCH (21:34)
[2018-07-12 00:03] VITALS: BP 118/85
[2018-07-12] MEDS: HEPARIN 5,000 UNITS/ML, 1ML SQ SCH ×3 (00:49→16:45)
[2018-07-12] MEDS: OXYcodone IR 5MG TABLET PO PRN ×3 (00:50→16:57)
[2018-07-12] MEDS: ACETAMINOPHEN 325 MG TABLET PO PRN (02:17)
[2018-07-12 08:17] VITALS: BP 129/88
[2018-07-12] MEDS: LACTOBACILLUS CHEW TABLET PO SCH ×3 (08:36→21:41)
[2018-07-12] MEDS: DOCUSATE 100 MG CAPSULE PO SCH ×2 (08:36→21:42)
[2018-07-12] MEDS: CALCIUM CARBONATE 500 MG TABLET PO SCH ×2 (08:36→21:42)
[2018-07-12] MEDS: POLYETHYLENE GLYCOL 17 GM PACKET PO SCH (08:37)
[2018-07-12] MEDS: POTASSIUM CHLORIDE 10 MEQ TABLET.ER PO SCH (08:37)
[2018-07-12 13:48] VITALS: BP 117/82
[2018-07-12 20:33] VITALS: BP 136/96
[2018-07-12] MEDS: DAPTOMYCIN 600 MG in SODIUM CHLORIDE 0.9% 100 ML IV SCH (21:41)
[2018-07-12] MEDS: LIDODERM 5% PATCH TD SCH (21:41)
[2018-07-12] MEDS: BACLOFEN 10 MG TABLET PO PRN (21:42)
[2018-07-13] MEDS: OXYcodone IR 5MG TABLET PO PRN ×2 (02:06→16:36)
[2018-07-13] MEDS: HEPARIN 5,000 UNITS/ML, 1ML SQ SCH ×3 (02:10→16:38)
[2018-07-13 02:15] VITALS: BP 135/92
[2018-07-13 07:10] VITALS: BP 144/101
[2018-07-13] MEDS: LACTOBACILLUS CHEW TABLET PO SCH ×3 (08:45→20:35)
[2018-07-13] MEDS: POLYETHYLENE GLYCOL 17 GM PACKET PO SCH (08:45)
[2018-07-13] MEDS: CALCIUM CARBONATE 500 MG TABLET PO SCH ×2 (08:45→20:35)
[2018-07-13] MEDS: DOCUSATE 100 MG CAPSULE PO SCH ×2 (08:45→20:35)
[2018-07-13] MEDS: POTASSIUM CHLORIDE 10 MEQ TABLET.ER PO SCH (08:46)
[2018-07-13 12:09] VITALS: BP 136/96
[2018-07-13] MEDS: BACLOFEN 10 MG TABLET PO PRN ×2 (12:26→20:35)
[2018-07-13 19:37] VITALS: BP 134/88
[2018-07-13] MEDS: LIDODERM 5% PATCH TD SCH (20:37)
[2018-07-13] MEDS: DAPTOMYCIN 600 MG in SODIUM CHLORIDE 0.9% 100 ML IV SCH (21:46)
[2018-07-14 01:28] VITALS: BP 129/90
[2018-07-14] MEDS: HEPARIN 5,000 UNITS/ML, 1ML SQ SCH ×3 (03:55→16:52)
[2018-07-14] MEDS: OXYcodone IR 5MG TABLET PO PRN ×2 (03:55→14:27)
[2018-07-14 04:26] LABS: BASOPHILS # (AUTO) 0.05 x10^3/uL (0-0.1); BASOPHILS % (AUTO) 1 % (0-1); EOSINOPHILS % (AUTO) 4 % (1-7); LYMPHOCYTES # (AUTO) 1.88 x10^3/uL (1-3.4); LYMPHOCYTES % (AUTO) 22 % (22-44); MD NO; MEAN CORPUSCULAR VOLUME 93.8 fL (80-100); MEAN PLATELET VOLUME 6.2 fL (7.4-10.4); MONOCYTES # (AUTO) 0.71 x10^3/uL (0.2-0.8); MONOCYTES % (AUTO) 8 % (2-9); NEUTROPHILS # (AUTO) 5.75 x10^3/uL (1.8-6.8); NEUTROPHILS % (AUTO) 66 % (42-75); PLATELET COUNT 444 x10^3/uL (130-400); RED BLOOD COUNT 4.37 x10^6/uL (3.82-5.3); RED CELL DISTRIBUTION WIDTH 18.8 % (9.6-15.2)
[2018-07-14 04:33] LABS: ALBUMIN 2.1 g/dL (3.4-5.0); ANION GAP 7 mmol/L (5-15); CALCIUM 8.3 mg/dL (8.5-10.1); CHLORIDE 104 mmol/L (98-107)
[2018-07-14 04:43] LABS: ALANINE AMINOTRANSFERASE 33 U/L (12-78); ALKALINE PHOSPHATASE 405 U/L (45-117); BILIRUBIN,TOTAL 0.7 mg/dL (0.2-1.0); CREATINE KINASE, TOTAL 448 U/L (26-192); CREATININE 0.88 mg/dL (0.55-1.02); TOTAL PROTEIN 7.5 g/dL (6.4-8.2)
[2018-07-14 07:31] VITALS: BP 146/104
[2018-07-14] MEDS: POTASSIUM CHLORIDE 10 MEQ TABLET.ER PO SCH (09:01)
[2018-07-14] MEDS: BACLOFEN 10 MG TABLET PO PRN (09:01)
[2018-07-14] MEDS: POLYETHYLENE GLYCOL 17 GM PACKET PO SCH (09:01)
[2018-07-14] MEDS: CALCIUM CARBONATE 500 MG TABLET PO SCH (09:01)
[2018-07-14] MEDS: DOCUSATE 100 MG CAPSULE PO SCH (09:01)
[2018-07-14] MEDS: LACTOBACILLUS CHEW TABLET PO SCH ×2 (09:01→16:00)
[2018-07-14] MEDS ORDERED: ACET250T2 PO (09:19)
[2018-07-14] MEDS ORDERED: POLY17PO5 PO (09:19)
[2018-07-14 13:57] VITALS: BP 138/101
[2018-07-14] MEDS: DAPTOMYCIN 600 MG in SODIUM CHLORIDE 0.9% 100 ML IV SCH (16:24)
== END 2018-07-14 18:26 | disposition home or self-care (01) | DRG 288 ==
LOC: ED 23:13 → EDIP 05-27 00:14 → 3NE 05-27 01:13
PROVIDERS: ADMIT Internal Medicine; ATTEND Family Medicine
PROC: 02HV33Z Insertion of Infusion Device into Superior Vena Cava, Percutaneous Approach (ICD-10-PCS; principal; 2018-06-05)
PROC: 0JH63XZ Insertion of Tunneled Vascular Access Device into Chest Subcutaneous Tissue and Fascia, Percutaneous Approach (ICD-10-PCS; 2018-06-05)
PROC: B518ZZA Fluoroscopy of Superior Vena Cava, Guidance (ICD-10-PCS; 2018-06-05)
PROC: B548ZZA Ultrasonography of Superior Vena Cava, Guidance (ICD-10-PCS; 2018-06-05)
DX: I33.0 Acute and subacute infective endocarditis (principal); E43 Unspecified severe protein-calorie malnutrition; I26.90 Septic pulmonary embolism without acute cor pulmonale; L03.113 Cellulitis of right upper limb; J98.11 Atelectasis; E87.3 Alkalosis; I31.3 Pericardial effusion (noninflammatory); R18.8 Other ascites; B19.20 Unspecified viral hepatitis C without hepatic coma; B95.62 Methicillin resistant Staphylococcus aureus infection as the cause of diseases classified elsewhere; E03.9 Hypothyroidism, unspecified; E11.9 Type 2 diabetes mellitus without complications; Z68.36 Body mass index [BMI] 36.0-36.9, adult; F17.200 Nicotine dependence, unspecified, uncomplicated; G89.29 Other chronic pain; I10 Essential (primary) hypertension; J44.9 Chronic obstructive pulmonary disease, unspecified; K59.00 Constipation, unspecified; K64.9 Unspecified hemorrhoids; K74.60 Unspecified cirrhosis of liver; K80.20 Calculus of gallbladder without cholecystitis without obstruction; M21.962 Unspecified acquired deformity of left lower leg; S41.111A Laceration without foreign body of right upper arm, initial encounter; F15.10 Other stimulant abuse, uncomplicated; M54.2 Cervicalgia; M54.5 Low back pain; R59.0 Localized enlarged lymph nodes; R21 Rash and other nonspecific skin eruption; M62.830 Muscle spasm of back; S92.502A Displaced unspecified fracture of left lesser toe(s), initial encounter for closed fracture; S92.513A Displaced fracture of proximal phalanx of unspecified lesser toe(s), initial encounter for closed fracture; S51.802A Unspecified open wound of left forearm, initial encounter; Q66.0 Congenital talipes equinovarus; Z86.14 Personal history of Methicillin resistant Staphylococcus aureus infection; Z86.73 Personal history of transient ischemic attack (TIA), and cerebral infarction without residual deficits; Z91.14 Patient's other noncompliance with medication regimen; Y93.89 Activity, other specified; Y92.89 Other specified places as the place of occurrence of the external cause; Y99.8 Other external cause status; Z23 Encounter for immunization
CPT/HCPCS: 36415; 36556; 36558; 71045; 71250; 71260; 74181; 76700; 76937; 77001; 80048; 80053; 80061; 80202; 80307; 81001; 82040; 82550; 82565; 83036; 83605; 83735; 84100; 84145; 84439; 84443; 84520; 84703; 85025; 85651; 86140; 86704; 86705; 86706; 86708; 86709; 86803; 87040; 87070; 87077; 87086; 87147; 87186; 87205; 87340; 87521; 90656; 93306; 96365; 96375; 99156; 99157; A9585; G0378; J0712; J0878; J1644; J1885; J2250; J3010; J3360; J3370; J3490; Q0162; Q9967; C1750; J1940; J2060; J2310; J3475; J7030; J7050

== ENCOUNTER 2019-12-02 15:51 | Inpatient (IN) | payer MEDICAID ==
[~2019-12-02] VITALS: Ht 163.8 cm; Wt 79.1 kg
[~2019-12-02 15:51] MED LIST: ACET250T2 PO; POLY17PO5 PO
--- NOTE | 2019-12-02 16:15 | NUR ---
Late Entry: pt wheeled into room by wheelchair, fiance at bedside, changed into gown, Dr Moore performed intial assessment and discussed plan of care. Pt placed on monitor. NAD, call light within reach, denies additional needs, WCTM.
[2019-12-02] MEDS ORDERED: SODIUM CHLORIDE FLUSH 10ML SYR IVF ONE (17:00)
--- NOTE | 2019-12-02 17:15 | NUR ---
SHERI Marcus at bedside to establish IV access w/ US. Pt in bed, NAD, AMRITA.
--- NOTE | 2019-12-02 18:18 | NUR ---
Pt refusing straight cath for urine sample, pt aware that UA is needed. Pt resting in bed, NAD, requesting pain medication, MD Tavarez aware, blood in lab, awaiting admit bed. WCTM.
[2019-12-02 18:30] LABS: ALANINE AMINOTRANSFERASE 9 U/L (12-78); ALBUMIN 2.1 g/dL (3.4-5.0); ANION GAP 3 mmol/L (5-15); CALCIUM 8.3 mg/dL (8.5-10.1); CHLORIDE 103 mmol/L (98-107)
[2019-12-02 18:43] LABS: ALKALINE PHOSPHATASE 238 U/L (45-117); TOTAL PROTEIN 7.6 g/dL (6.4-8.2)
--- NOTE | 2019-12-02 18:50 | NUR ---
Bedside report to SHERI Epps, pt care transferred at this time
[2019-12-02 18:54] LABS: MEAN CORPUSCULAR HGB CONC 32.6 g/dL (32.4-35.8); MEAN CORPUSCULAR VOLUME 92.1 fL (80-100); MEAN PLATELET VOLUME 6.7 fL (7.4-10.4); PLATELET COUNT 307 x10^3/uL (130-400); RED BLOOD COUNT 5.25 x10^6/uL (3.82-5.3); RED CELL DISTRIBUTION WIDTH 19.7 % (9.6-15.2)
[2019-12-02 18:58] LABS: HCT (SEDRATE) 48.3 % (34.6-47.8)
--- NOTE | 2019-12-02 19:16 | NUR ---
UA COLLECTED. PT IDENTIFIERS CONFIRMED WITH PT. SENT TO LAB. MONITOR IN PLACE. FAMILY AT BEDSIDE.
[2019-12-02 19:38] LABS: BASOPHILS # (AUTO) 0.02 x10^3/uL (0-0.1); BASOPHILS % (AUTO) 0 % (0-1); EOSINOPHILS # (AUTO) 0.14 x10^3/uL (0-0.4); EOSINOPHILS % (AUTO) 2 % (1-7); LYMPHOCYTES % (AUTO) 13 % (22-44); MD SCAN; MONOCYTES # (AUTO) 0.54 x10^3/uL (0.2-0.8); MONOCYTES % (AUTO) 8 % (2-9); NEUTROPHILS # (AUTO) 5.13 x10^3/uL (1.8-6.8); NEUTROPHILS % (AUTO) 76 % (42-75)
[2019-12-02] MEDS ORDERED: OMNIPAQUE 350 MG/ML, 100ML BOTTLE ONE (20:05)
[2019-12-02 20:19] LABS: MICROSCOPIC AUTO
[2019-12-02 20:22] LABS: CULTURE INDICATED? YES
[2019-12-02 20:30] LABS: AMPHETAMINE SCREEN, URINE Negative (Negative); BARBITURATE SCREEN, URINE Negative (Negative); CANNABINOID SCREEN, URINE Negative (Negative); COCAINE SCREEN, URINE Negative (Negative); METHADONE SCREEN, URINE Negative (Negative); OPIATE SCREEN, URINE Positive (Negative)
[2019-12-02 20:31] LABS: BENZODIAZEPINE SCREEN, URINE Negative (Negative)
--- NOTE | 2019-12-02 20:47 | NUR ---
PURE WICK PLACED FOR PT COMFOR. NO OTHER NEEDS AT THIS TIME.
[2019-12-02] MEDS: SODIUM CHLORIDE FLUSH 10ML SYR IVF SCH (21:00)
[2019-12-02] MEDS ORDERED: ONDANSETRON ODT 4 MG PO PRN (21:00)
[2019-12-02] MEDS ORDERED: BISACODYL 10 MG SUPP PR PRN (21:00)
[2019-12-02] MEDS ORDERED: MORPHINE SULFATE 4 MG/ML, 1ML ONE (21:35)
[2019-12-02] MEDS ORDERED: FUROSEMIDE 20 MG/2 ML ONE (21:35)
[2019-12-02] MEDS: FUROSEMIDE 20 MG/2 ML IV SCH (21:39)
[2019-12-02 22:02] VITALS: BP 99/66
[2019-12-02 23:24] LABS: FREE T4 (FREE THYROXINE) 0.43 ng/dL (0.76-1.46)
[2019-12-02] MEDS: HEPARIN 5,000 UNITS/ML, 1ML SQ SCH (23:31)
[2019-12-02] MEDS: NYSTATIN TOPICAL POWDER 15GM TP SCH (23:32)
[2019-12-03 00:09] VITALS: BP 104/68
[2019-12-03] MEDS: CEFTRIAXONE PMX 1GM/50ML 50 ML IV SCH (01:35)
[2019-12-03] MEDS: CARVEDILOL 3.125 MG TABLET PO SCH ×2 (05:31→17:35)
[2019-12-03] MEDS: morphine SULFATE 10 MG/ML, 1ML IVPush PRN ×2 (05:31→22:46)
[2019-12-03] MEDS: NICOTINE 14MG/24 HR PATCH.TD24 TD SCH ×2 (05:32→12:01)
[2019-12-03 06:59] LABS: BASOPHILS # (AUTO) 0.03 x10^3/uL (0-0.1); BASOPHILS % (AUTO) 1 % (0-1); EOSINOPHILS # (AUTO) 0.11 x10^3/uL (0-0.4); EOSINOPHILS % (AUTO) 2 % (1-7); LYMPHOCYTES # (AUTO) 0.69 x10^3/uL (1-3.4); LYMPHOCYTES % (AUTO) 12 % (22-44); MD NO; MEAN CORPUSCULAR HEMOGLOBIN 29.9 pg (27.0-34.8); MEAN CORPUSCULAR HGB CONC 32.7 g/dL (32.4-35.8); MEAN CORPUSCULAR VOLUME 91.5 fL (80-100); MEAN PLATELET VOLUME 6.2 fL (7.4-10.4); MONOCYTES # (AUTO) 0.56 x10^3/uL (0.2-0.8); MONOCYTES % (AUTO) 10 % (2-9); NEUTROPHILS # (AUTO) 4.32 x10^3/uL (1.8-6.8); NEUTROPHILS % (AUTO) 76 % (42-75); PLATELET COUNT 303 x10^3/uL (130-400); RED BLOOD COUNT 5.22 x10^6/uL (3.82-5.3); RED CELL DISTRIBUTION WIDTH 18.9 % (9.6-15.2)
[2019-12-03] MEDS: FUROSEMIDE 20 MG/2 ML IV SCH ×2 (07:30→17:35)
[2019-12-03 08:26] VITALS: BP 89/67
[2019-12-03 08:38] LABS: CALCIUM 7.6 mg/dL (8.5-10.1); CHOLESTEROL, TOTAL 95 mg/dL (140-239); CREATININE 0.78 mg/dL (0.55-1.02); TRIGLYCERIDES 57 mg/dL (50-200); VLDL CHOLESTEROL 11 mg/dL (0-25)
[2019-12-03 08:40] VITALS: BP 89/58
[2019-12-03 08:40] LABS: CHOL/HDL RATIO 2.7; HDL CHOL % 37 % (28-40); HDL CHOLESTEROL (DIRECT) 35 mg/dL (40-60); LDL CHOLESTEROL,CALCULATED 49 mg/dL (54-169); LDL/HDL RATIO 1.4 (0.5-3.0)
[2019-12-03] MEDS: SENNA/DOCUSATE TABLET PO SCH (08:40)
[2019-12-03] MEDS: LISINOPRIL 5 MG TABLET PO SCH (08:40)
[2019-12-03] MEDS: NYSTATIN TOPICAL POWDER 15GM TP SCH ×3 (08:41→22:22)
[2019-12-03] MEDS: HEPARIN 5,000 UNITS/ML, 1ML SQ SCH ×2 (08:41→17:37)
[2019-12-03] MEDS: SODIUM CHLORIDE FLUSH 10ML SYR IVF SCH ×2 (08:41→22:22)
[2019-12-03 08:51] LABS: CHLORIDE 104 mmol/L (98-107)
[2019-12-03 08:52] LABS: ANION GAP 4 mmol/L (5-15)
[2019-12-03] MEDS: SULFAMETH./TRIMETHOPRIM DS 800MG/160MG TABLET PO SCH ×2 (11:55→22:21)
[2019-12-03] MEDS: LIDODERM 5% PATCH TD PRN (12:01)
[2019-12-03 14:29] VITALS: BP 102/71
[2019-12-03 22:17] VITALS: BP 89/56
[2019-12-04] MEDS: HEPARIN 5,000 UNITS/ML, 1ML SQ SCH ×3 (01:23→17:49)
[2019-12-04] MEDS: CEFTRIAXONE PMX 1GM/50ML 50 ML IV SCH (01:23)
[2019-12-04 01:31] VITALS: BP 95/65
[2019-12-04] MEDS: morphine SULFATE 10 MG/ML, 1ML IVPush PRN ×4 (05:57→18:17)
[2019-12-04 08:23] VITALS: BP 97/63
[2019-12-04] MEDS: LISINOPRIL 5 MG TABLET PO SCH (08:29)
[2019-12-04] MEDS: FUROSEMIDE 20 MG/2 ML IV SCH ×2 (08:29→21:00)
[2019-12-04] MEDS: SENNA/DOCUSATE TABLET PO SCH (08:29)
[2019-12-04] MEDS: CARVEDILOL 3.125 MG TABLET PO SCH ×2 (08:29→17:49)
[2019-12-04] MEDS: SODIUM CHLORIDE FLUSH 10ML SYR IVF SCH ×2 (08:30→22:08)
[2019-12-04 08:31] LABS: BASOPHILS # (AUTO) 0.01 x10^3/uL (0-0.1); BASOPHILS % (AUTO) 0 % (0-1); EOSINOPHILS # (AUTO) 0.16 x10^3/uL (0-0.4); EOSINOPHILS % (AUTO) 3 % (1-7); LYMPHOCYTES # (AUTO) 0.81 x10^3/uL (1-3.4); LYMPHOCYTES % (AUTO) 14 % (22-44); MD NO; MEAN CORPUSCULAR HEMOGLOBIN 30.4 pg (27.0-34.8); MEAN CORPUSCULAR HGB CONC 32.9 g/dL (32.4-35.8); MEAN CORPUSCULAR VOLUME 92.3 fL (80-100); MEAN PLATELET VOLUME 6.1 fL (7.4-10.4); MONOCYTES # (AUTO) 0.53 x10^3/uL (0.2-0.8); MONOCYTES % (AUTO) 9 % (2-9); NEUTROPHILS # (AUTO) 4.34 x10^3/uL (1.8-6.8); NEUTROPHILS % (AUTO) 74 % (42-75); PLATELET COUNT 302 x10^3/uL (130-400); RED BLOOD COUNT 4.86 x10^6/uL (3.82-5.3); RED CELL DISTRIBUTION WIDTH 19.3 % (9.6-15.2)
[2019-12-04] MEDS: NYSTATIN TOPICAL POWDER 15GM TP SCH ×3 (08:31→22:04)
[2019-12-04 08:38] LABS: ANION GAP 4 mmol/L (5-15); CALCIUM 7.8 mg/dL (8.5-10.1); CHLORIDE 105 mmol/L (98-107)
[2019-12-04] MEDS: SULFAMETH./TRIMETHOPRIM DS 800MG/160MG TABLET PO SCH ×2 (09:11→22:03)
[2019-12-04 11:57] VITALS: BP 95/62
[2019-12-04] MEDS: LIDODERM 5% PATCH TD PRN (12:05)
[2019-12-04 15:26] VITALS: BP 84/53
[2019-12-04 16:53] VITALS: BP 87/56
[2019-12-04 21:00] VITALS: BP 73/47
[2019-12-04] MEDS ORDERED: ALBUMIN HUMAN 25% 100 ML IV ONE (22:00)
[2019-12-05 01:44] VITALS: BP 76/49
[2019-12-05] MEDS: HEPARIN 5,000 UNITS/ML, 1ML SQ SCH ×3 (02:13→17:49)
[2019-12-05] MEDS ORDERED: ALBUMIN HUMAN 25% 100 ML IV ONE (02:30)
[2019-12-05 05:12] LABS: BASOPHILS # (AUTO) 0.08 x10^3/uL (0-0.1); BASOPHILS % (AUTO) 1 % (0-1); EOSINOPHILS # (AUTO) 0.11 x10^3/uL (0-0.4); EOSINOPHILS % (AUTO) 2 % (1-7); LYMPHOCYTES % (AUTO) 15 % (22-44); MD NO; MEAN CORPUSCULAR HGB CONC 32.7 g/dL (32.4-35.8); MEAN CORPUSCULAR VOLUME 91.8 fL (80-100); MEAN PLATELET VOLUME 6.4 fL (7.4-10.4); MONOCYTES # (AUTO) 0.59 x10^3/uL (0.2-0.8); MONOCYTES % (AUTO) 10 % (2-9); NEUTROPHILS # (AUTO) 4.31 x10^3/uL (1.8-6.8); NEUTROPHILS % (AUTO) 72 % (42-75); PLATELET COUNT 259 x10^3/uL (130-400); RED CELL DISTRIBUTION WIDTH 19.3 % (9.6-15.2)
[2019-12-05 05:25] LABS: ANION GAP 6 mmol/L (5-15); CALCIUM 7.7 mg/dL (8.5-10.1); CHLORIDE 104 mmol/L (98-107)
[2019-12-05 05:26] LABS: CREATININE 1.03 mg/dL (0.55-1.02)
[2019-12-05 05:33] VITALS: BP 86/48
[2019-12-05] MEDS: morphine SULFATE 10 MG/ML, 1ML IVPush PRN (05:44)
[2019-12-05] MEDS: NICOTINE 14MG/24 HR PATCH.TD24 TD SCH (09:00)
[2019-12-05 10:14] VITALS: BP 90/57
[2019-12-05] MEDS: NYSTATIN TOPICAL POWDER 15GM TP SCH ×3 (10:17→21:47)
[2019-12-05] MEDS: SENNA/DOCUSATE TABLET PO SCH (10:18)
[2019-12-05] MEDS: SODIUM CHLORIDE FLUSH 10ML SYR IVF SCH ×2 (10:19→21:47)
[2019-12-05] MEDS: SULFAMETH./TRIMETHOPRIM DS 800MG/160MG TABLET PO SCH ×2 (10:19→21:46)
[2019-12-05] MEDS ORDERED: METHADONE 5 MG TABLET PO PRN (10:30)
[2019-12-05 10:35] LABS: INTERNATIONAL NORMALIZED RATIO 1.2 (0.93-1.1); PROTHROMBIN TIME 12.7 Seconds (9.6-11.5)
[2019-12-05] MEDS: LEVOTHYROXINE 100 MCG INJ IVPush SCH (10:59)
[2019-12-05] MEDS: ALBUMIN HUMAN 25% 100 ML IV SCH ×3 (11:00→23:26)
[2019-12-05 14:37] VITALS: BP 91/58
[2019-12-05] MEDS: METHADONE 5 MG TABLET PO PRN ×2 (17:21→23:26)
[2019-12-05] MEDS: FUROSEMIDE 20 MG TABLET PO SCH (17:22)
[2019-12-05] MEDS: LIDODERM 5% PATCH TD PRN (17:49)
[2019-12-05 18:49] LABS: CULTURE INDICATED? YES; MICROSCOPIC INDICATED
[2019-12-05 21:40] VITALS: BP 86/59
[2019-12-05] MEDS: SPIRONOLACTONE 25 MG TABLET PO SCH (21:45)
[2019-12-06] MEDS: HEPARIN 5,000 UNITS/ML, 1ML SQ SCH ×3 (02:35→17:33)
[2019-12-06 02:40] VITALS: BP 90/60
[2019-12-06] MEDS: ALBUMIN HUMAN 25% 100 ML IV SCH ×3 (05:19→18:54)
[2019-12-06] MEDS: METHADONE 5 MG TABLET PO PRN (05:19)
[2019-12-06 05:41] LABS: BASOPHILS # (AUTO) 0.01 x10^3/uL (0-0.1); BASOPHILS % (AUTO) 0 % (0-1); EOSINOPHILS # (AUTO) 0.14 x10^3/uL (0-0.4); EOSINOPHILS % (AUTO) 2 % (1-7); LYMPHOCYTES % (AUTO) 14 % (22-44); MD NO; MEAN CORPUSCULAR HEMOGLOBIN 29.8 pg (27.0-34.8); MEAN CORPUSCULAR HGB CONC 32.4 g/dL (32.4-35.8); MEAN CORPUSCULAR VOLUME 91.9 fL (80-100); MEAN PLATELET VOLUME 6.3 fL (7.4-10.4); MONOCYTES # (AUTO) 0.51 x10^3/uL (0.2-0.8); MONOCYTES % (AUTO) 9 % (2-9); NEUTROPHILS # (AUTO) 4.51 x10^3/uL (1.8-6.8); NEUTROPHILS % (AUTO) 76 % (42-75); PLATELET COUNT 260 x10^3/uL (130-400); RED BLOOD COUNT 4.77 x10^6/uL (3.82-5.3); RED CELL DISTRIBUTION WIDTH 19.2 % (9.6-15.2)
[2019-12-06] MEDS: NICOTINE 14MG/24 HR PATCH.TD24 TD SCH (05:47)
[2019-12-06 05:50] LABS: ALANINE AMINOTRANSFERASE 11 U/L (12-78); ALBUMIN 2.6 g/dL (3.4-5.0); ANION GAP 4 mmol/L (5-15); CALCIUM 7.7 mg/dL (8.5-10.1); CHLORIDE 103 mmol/L (98-107); CREATININE 1.03 mg/dL (0.55-1.02)
[2019-12-06 05:52] LABS: ALKALINE PHOSPHATASE 176 U/L (45-117); BILIRUBIN,TOTAL 1.1 mg/dL (0.2-1.0); TOTAL PROTEIN 6.4 g/dL (6.4-8.2)
[2019-12-06 06:40] VITALS: BP 90/54
[2019-12-06] MEDS ORDERED: NALOXONE 0.4 MG/ML, 1ML IVPush PRN (09:00)
[2019-12-06 09:46] VITALS: BP 99/65
[2019-12-06] MEDS: SPIRONOLACTONE 25 MG TABLET PO SCH ×2 (09:49→22:02)
[2019-12-06] MEDS: SULFAMETH./TRIMETHOPRIM DS 800MG/160MG TABLET PO SCH ×2 (09:49→22:02)
[2019-12-06] MEDS: LEVOTHYROXINE 100 MCG INJ IVPush SCH (09:49)
[2019-12-06] MEDS: SENNA/DOCUSATE TABLET PO SCH (09:50)
[2019-12-06] MEDS: CYCLOBENZAPRINE 10 MG TABLET PO PRN ×2 (09:50→18:54)
[2019-12-06] MEDS: FUROSEMIDE 20 MG TABLET PO SCH ×2 (09:50→17:33)
[2019-12-06] MEDS: NYSTATIN TOPICAL POWDER 15GM TP SCH ×3 (09:57→22:02)
[2019-12-06] MEDS: SODIUM CHLORIDE FLUSH 10ML SYR IVF SCH ×2 (09:57→22:02)
[2019-12-06] MEDS ORDERED: METHADONE 10 MG TABLET ONE (10:07)
[2019-12-06 15:34] VITALS: BP 98/62
[2019-12-06] MEDS: METHADONE 10 MG TABLET PO PRN (17:33)
[2019-12-06 21:54] VITALS: BP 108/77
[2019-12-07] MEDS: ALBUMIN HUMAN 25% 100 ML IV SCH ×4 (01:17→22:10)
[2019-12-07 01:42] VITALS: BP 93/66
[2019-12-07] MEDS: HEPARIN 5,000 UNITS/ML, 1ML SQ SCH ×3 (02:12→17:45)
[2019-12-07] MEDS: METHADONE 10 MG TABLET PO PRN ×4 (02:39→22:35)
[2019-12-07] MEDS: LIDODERM 5% PATCH TD PRN (02:39)
[2019-12-07] MEDS: NICOTINE 14MG/24 HR PATCH.TD24 TD SCH (06:00)
[2019-12-07 07:01] LABS: ALANINE AMINOTRANSFERASE 13 U/L (12-78); ALBUMIN 3.6 g/dL (3.4-5.0); CALCIUM 8.3 mg/dL (8.5-10.1); CHLORIDE 100 mmol/L (98-107); CREATININE 1.04 mg/dL (0.55-1.02)
[2019-12-07 07:04] LABS: ALKALINE PHOSPHATASE 179 U/L (45-117); BILIRUBIN,TOTAL 1.3 mg/dL (0.2-1.0); TOTAL PROTEIN 7.4 g/dL (6.4-8.2)
[2019-12-07 07:09] LABS: ANION GAP 4 mmol/L (5-15)
[2019-12-07 08:06] VITALS: BP 107/72
[2019-12-07] MEDS: SULFAMETH./TRIMETHOPRIM DS 800MG/160MG TABLET PO SCH ×2 (09:19→22:10)
[2019-12-07] MEDS: FUROSEMIDE 20 MG TABLET PO SCH ×2 (09:19→17:45)
[2019-12-07] MEDS: SPIRONOLACTONE 25 MG TABLET PO SCH ×2 (09:19→22:09)
[2019-12-07] MEDS: SENNA/DOCUSATE TABLET PO SCH (09:20)
[2019-12-07] MEDS: SODIUM CHLORIDE FLUSH 10ML SYR IVF SCH ×2 (09:20→22:10)
[2019-12-07] MEDS: LEVOTHYROXINE 100 MCG INJ IVPush SCH (09:21)
[2019-12-07] MEDS: NYSTATIN TOPICAL POWDER 15GM TP SCH ×3 (09:25→22:10)
[2019-12-07] MEDS: CYCLOBENZAPRINE 10 MG TABLET PO PRN ×3 (09:35→22:35)
[2019-12-07] MEDS: CEFTRIAXONE PMX 2GM/50ML 50 ML IV SCH (10:36)
[2019-12-07] MEDS ORDERED: LIDOCAINE 1%, 10ML ONE (10:50)
[2019-12-07 12:21] VITALS: BP 108/76
[2019-12-07 17:44] VITALS: BP 104/68
[2019-12-07 20:29] VITALS: BP 94/63
[2019-12-08 02:09] VITALS: BP 102/74
[2019-12-08] MEDS: HEPARIN 5,000 UNITS/ML, 1ML SQ SCH ×3 (02:16→17:59)
[2019-12-08] MEDS: ALBUMIN HUMAN 25% 100 ML IV SCH ×4 (04:12→22:00)
[2019-12-08] MEDS: NICOTINE 14MG/24 HR PATCH.TD24 TD SCH (04:38)
[2019-12-08 05:55] LABS: ALBUMIN 3.8 g/dL (3.4-5.0); ANION GAP 2 mmol/L (5-15); CALCIUM 8.2 mg/dL (8.5-10.1); CHLORIDE 102 mmol/L (98-107)
[2019-12-08 06:00] LABS: ALANINE AMINOTRANSFERASE 12 U/L (12-78); ALKALINE PHOSPHATASE 166 U/L (45-117); CREATININE 1.12 mg/dL (0.55-1.02); TOTAL PROTEIN 7.3 g/dL (6.4-8.2)
[2019-12-08 07:10] VITALS: BP 107/61
[2019-12-08] MEDS: SENNA/DOCUSATE TABLET PO SCH (09:14)
[2019-12-08] MEDS: FUROSEMIDE 20 MG TABLET PO SCH ×2 (09:14→16:50)
[2019-12-08] MEDS: SULFAMETH./TRIMETHOPRIM DS 800MG/160MG TABLET PO SCH ×2 (09:14→22:03)
[2019-12-08] MEDS: SPIRONOLACTONE 25 MG TABLET PO SCH ×2 (09:14→22:03)
[2019-12-08] MEDS: LEVOTHYROXINE 100 MCG INJ IVPush SCH (09:15)
[2019-12-08] MEDS: CEFTRIAXONE PMX 2GM/50ML 50 ML IV SCH (09:15)
[2019-12-08] MEDS: SODIUM CHLORIDE FLUSH 10ML SYR IVF SCH ×2 (09:16→22:03)
[2019-12-08] MEDS: NYSTATIN TOPICAL POWDER 15GM TP SCH ×3 (09:17→22:03)
[2019-12-08] MEDS: CYCLOBENZAPRINE 10 MG TABLET PO PRN ×2 (09:28→17:59)
[2019-12-08] MEDS: METHADONE 10 MG TABLET PO PRN ×2 (09:28→17:59)
[2019-12-08] MEDS: GABAPENTIN 100 MG CAPSULE PO SCH ×3 (11:59→22:04)
[2019-12-08 15:30] VITALS: BP 104/72
[2019-12-08 19:30] VITALS: BP 102/65
[2019-12-08] MEDS: LIDODERM 5% PATCH TD PRN (22:27)
[2019-12-09 00:49] VITALS: BP 106/74
[2019-12-09] MEDS: HEPARIN 5,000 UNITS/ML, 1ML SQ SCH ×3 (03:14→17:57)
[2019-12-09] MEDS: METHADONE 10 MG TABLET PO PRN ×3 (03:25→23:09)
[2019-12-09] MEDS: CYCLOBENZAPRINE 10 MG TABLET PO PRN ×3 (03:25→23:09)
[2019-12-09] MEDS: NICOTINE 14MG/24 HR PATCH.TD24 TD SCH (05:31)
[2019-12-09] MEDS: GABAPENTIN 100 MG CAPSULE PO SCH ×4 (06:00→22:03)
[2019-12-09 06:42] VITALS: BP 105/72
[2019-12-09 06:51] LABS: ANION GAP 3 mmol/L (5-15); CALCIUM 8.3 mg/dL (8.5-10.1); CHLORIDE 99 mmol/L (98-107)
[2019-12-09 06:52] LABS: CREATININE 1.05 mg/dL (0.55-1.02)
[2019-12-09] MEDS: FUROSEMIDE 20 MG TABLET PO SCH ×2 (09:11→16:33)
[2019-12-09] MEDS: SPIRONOLACTONE 25 MG TABLET PO SCH ×2 (09:11→22:03)
[2019-12-09] MEDS: SULFAMETH./TRIMETHOPRIM DS 800MG/160MG TABLET PO SCH ×2 (09:11→22:03)
[2019-12-09] MEDS: SENNA/DOCUSATE TABLET PO SCH (09:11)
[2019-12-09] MEDS: NYSTATIN TOPICAL POWDER 15GM TP SCH ×3 (09:12→22:04)
[2019-12-09] MEDS: CEFTRIAXONE PMX 2GM/50ML 50 ML IV SCH (11:42)
[2019-12-09] MEDS: SODIUM CHLORIDE FLUSH 10ML SYR IVF SCH ×2 (11:42→22:00)
[2019-12-09] MEDS: LEVOTHYROXINE 100 MCG INJ IVPush SCH (11:42)
[2019-12-09 14:41] VITALS: BP 108/74
[2019-12-09 18:55] VITALS: BP 105/70
[2019-12-09] MEDS: LIDODERM 5% PATCH TD PRN (23:09)
[2019-12-10] MEDS: HEPARIN 5,000 UNITS/ML, 1ML SQ SCH ×3 (02:18→17:18)
[2019-12-10 02:19] VITALS: BP 116/81
[2019-12-10] MEDS: NICOTINE 14MG/24 HR PATCH.TD24 TD SCH (06:26)
[2019-12-10] MEDS: GABAPENTIN 100 MG CAPSULE PO SCH ×6 (06:26→20:17)
[2019-12-10 06:52] VITALS: BP 105/71
[2019-12-10] MEDS: SENNA/DOCUSATE TABLET PO SCH (09:18)
[2019-12-10] MEDS: LEVOTHYROXINE 100 MCG INJ IVPush SCH (09:18)
[2019-12-10] MEDS: SPIRONOLACTONE 25 MG TABLET PO SCH ×2 (09:18→20:14)
[2019-12-10] MEDS: NYSTATIN TOPICAL POWDER 15GM TP SCH ×3 (09:18→20:14)
[2019-12-10] MEDS: FUROSEMIDE 20 MG TABLET PO SCH ×2 (09:18→17:17)
[2019-12-10] MEDS: SODIUM CHLORIDE FLUSH 10ML SYR IVF SCH ×2 (09:19→20:14)
[2019-12-10] MEDS: CEFTRIAXONE PMX 2GM/50ML 50 ML IV SCH (10:35)
[2019-12-10] MEDS: METHADONE 10 MG TABLET PO PRN ×2 (13:02→20:14)
[2019-12-10 13:24] VITALS: BP 97/63
--- NOTE | 2019-12-10 15:23 | NUR ---
green sheet initiated 12/10/19: 1-2 person stand pivot assist up to chair 1-3 times a day leg exercies 1 -3 times a day Addendum: 12/10/19 at 1532 by Richelle Lindsey PT Amended: Links added.
[2019-12-10 19:55] VITALS: BP 100/73
[2019-12-10] MEDS: CYCLOBENZAPRINE 10 MG TABLET PO PRN (21:02)
[2019-12-11 02:19] VITALS: BP 103/64
[2019-12-11] MEDS: METHADONE 10 MG TABLET PO PRN ×2 (02:26→08:46)
[2019-12-11] MEDS: HEPARIN 5,000 UNITS/ML, 1ML SQ SCH ×3 (02:26→18:15)
[2019-12-11] MEDS: NICOTINE 14MG/24 HR PATCH.TD24 TD SCH (05:33)
[2019-12-11] MEDS: GABAPENTIN 100 MG CAPSULE PO SCH ×4 (05:33→21:00)
[2019-12-11 06:51] LABS: BASOPHILS # (AUTO) 0.05 x10^3/uL (0-0.1); BASOPHILS % (AUTO) 1 % (0-1); EOSINOPHILS % (AUTO) 3 % (1-7); LYMPHOCYTES # (AUTO) 1.07 x10^3/uL (1-3.4); LYMPHOCYTES % (AUTO) 18 % (22-44); MD NO; MEAN CORPUSCULAR HEMOGLOBIN 30.3 pg (27.0-34.8); MEAN CORPUSCULAR HGB CONC 32.7 g/dL (32.4-35.8); MEAN CORPUSCULAR VOLUME 92.7 fL (80-100); MEAN PLATELET VOLUME 6.9 fL (7.4-10.4); MONOCYTES # (AUTO) 0.67 x10^3/uL (0.2-0.8); MONOCYTES % (AUTO) 11 % (2-9); NEUTROPHILS # (AUTO) 3.96 x10^3/uL (1.8-6.8); NEUTROPHILS % (AUTO) 67 % (42-75); PLATELET COUNT 251 x10^3/uL (130-400); RED BLOOD COUNT 4.43 x10^6/uL (3.82-5.3); RED CELL DISTRIBUTION WIDTH 19.3 % (9.6-15.2)
[2019-12-11 07:03] LABS: ALBUMIN 3.9 g/dL (3.4-5.0); ANION GAP 3 mmol/L (5-15); CALCIUM 8.9 mg/dL (8.5-10.1); CHLORIDE 97 mmol/L (98-107)
[2019-12-11 07:06] LABS: ALANINE AMINOTRANSFERASE 11 U/L (12-78); ALKALINE PHOSPHATASE 199 U/L (45-117); BILIRUBIN,TOTAL 0.9 mg/dL (0.2-1.0); CREATININE 0.87 mg/dL (0.55-1.02); TOTAL PROTEIN 7.7 g/dL (6.4-8.2)
[2019-12-11 08:19] VITALS: BP 105/67
[2019-12-11] MEDS: LEVOTHYROXINE 100 MCG INJ IVPush SCH (08:27)
[2019-12-11] MEDS: SODIUM CHLORIDE FLUSH 10ML SYR IVF SCH ×2 (08:28→21:34)
[2019-12-11] MEDS: FUROSEMIDE 20 MG TABLET PO SCH ×2 (08:28→16:15)
[2019-12-11] MEDS: SPIRONOLACTONE 25 MG TABLET PO SCH ×2 (08:28→21:35)
[2019-12-11] MEDS: SENNA/DOCUSATE TABLET PO SCH (08:28)
[2019-12-11] MEDS: NYSTATIN TOPICAL POWDER 15GM TP SCH ×3 (11:08→21:36)
[2019-12-11] MEDS: CEFTRIAXONE PMX 2GM/50ML 50 ML IV SCH (11:08)
[2019-12-11 14:29] VITALS: BP 109/73
[2019-12-11] MEDS: morphine SULFATE 10 MG/ML, 1ML IVPush PRN (19:42)
[2019-12-11 20:15] VITALS: BP 103/69
[2019-12-12 00:51] VITALS: BP 111/76
[2019-12-12] MEDS: HEPARIN 5,000 UNITS/ML, 1ML SQ SCH ×3 (02:08→17:55)
[2019-12-12] MEDS: morphine SULFATE 10 MG/ML, 1ML IVPush PRN (02:16)
[2019-12-12] MEDS: METHADONE 10 MG TABLET PO PRN ×2 (04:07→21:10)
[2019-12-12] MEDS: GABAPENTIN 100 MG CAPSULE PO SCH ×4 (05:10→21:11)
[2019-12-12] MEDS: NICOTINE 14MG/24 HR PATCH.TD24 TD SCH (05:10)
[2019-12-12 05:29] LABS: ANION GAP 4 mmol/L (5-15); CALCIUM 8.8 mg/dL (8.5-10.1); CHLORIDE 97 mmol/L (98-107)
[2019-12-12 05:41] LABS: CREATININE 0.87 mg/dL (0.55-1.02)
[2019-12-12 07:18] VITALS: BP 117/77
[2019-12-12] MEDS: SENNA/DOCUSATE TABLET PO SCH (09:14)
[2019-12-12] MEDS: LEVOTHYROXINE 125 MCG TABLET PO SCH (09:14)
[2019-12-12] MEDS: SPIRONOLACTONE 25 MG TABLET PO SCH (09:14)
[2019-12-12] MEDS: SODIUM CHLORIDE FLUSH 10ML SYR IVF SCH ×2 (09:15→21:11)
[2019-12-12] MEDS: FUROSEMIDE 20 MG TABLET PO SCH ×2 (09:15→17:05)
[2019-12-12] MEDS: NYSTATIN TOPICAL POWDER 15GM TP SCH ×3 (09:15→21:12)
[2019-12-12 13:44] VITALS: BP 106/71
[2019-12-12] MEDS: OXYcodone IR 5MG TABLET PO PRN (17:05)
[2019-12-12] MEDS: CYCLOBENZAPRINE 10 MG TABLET PO PRN (17:05)
[2019-12-12 18:25] VITALS: BP 108/74
[2019-12-12] MEDS: SPIRONOLACTONE 50 MG TABLET PO SCH (21:11)
[2019-12-13 01:07] VITALS: BP 114/73
[2019-12-13] MEDS: OXYcodone IR 5MG TABLET PO PRN ×4 (01:55→21:43)
[2019-12-13] MEDS: HEPARIN 5,000 UNITS/ML, 1ML SQ SCH ×3 (02:00→17:29)
[2019-12-13] MEDS: GABAPENTIN 100 MG CAPSULE PO SCH ×4 (05:34→21:37)
[2019-12-13] MEDS: METHADONE 10 MG TABLET PO PRN (05:34)
[2019-12-13] MEDS: NICOTINE 14MG/24 HR PATCH.TD24 TD SCH (05:34)
[2019-12-13] MEDS: LEVOTHYROXINE 125 MCG TABLET PO SCH (05:34)
[2019-12-13 07:03] VITALS: BP 110/72
[2019-12-13] MEDS: LACTULOSE 10 GM/15 ML UDC PO SCH ×2 (08:55→21:37)
[2019-12-13] MEDS: FUROSEMIDE 20 MG TABLET PO SCH ×2 (08:55→15:28)
[2019-12-13] MEDS: NYSTATIN TOPICAL POWDER 15GM TP SCH ×3 (08:55→21:37)
[2019-12-13] MEDS: SPIRONOLACTONE 50 MG TABLET PO SCH ×2 (08:55→21:37)
[2019-12-13] MEDS: SODIUM CHLORIDE FLUSH 10ML SYR IVF SCH ×2 (08:56→21:33)
[2019-12-13 13:41] VITALS: BP 106/75
[2019-12-13] MEDS: CYCLOBENZAPRINE 10 MG TABLET PO PRN (15:28)
[2019-12-13 20:35] VITALS: BP 105/66
[2019-12-14] MEDS: LIDODERM 5% PATCH TD PRN (00:17)
[2019-12-14] MEDS: CYCLOBENZAPRINE 10 MG TABLET PO PRN ×3 (00:18→18:14)
[2019-12-14 01:29] VITALS: BP 99/67
[2019-12-14] MEDS: METHADONE 5 MG TABLET PO PRN ×3 (02:46→16:36)
[2019-12-14] MEDS: HEPARIN 5,000 UNITS/ML, 1ML SQ SCH ×3 (02:47→18:00)
[2019-12-14 06:28] VITALS: BP 99/67
[2019-12-14] MEDS: LEVOTHYROXINE 125 MCG TABLET PO SCH (06:36)
[2019-12-14] MEDS: GABAPENTIN 100 MG CAPSULE PO SCH ×4 (06:36→22:10)
[2019-12-14] MEDS: NICOTINE 14MG/24 HR PATCH.TD24 TD SCH (06:37)
[2019-12-14] MEDS: OXYcodone IR 5MG TABLET PO PRN ×3 (06:37→22:10)
[2019-12-14] MEDS: FUROSEMIDE 20 MG TABLET PO SCH ×2 (09:15→16:36)
[2019-12-14] MEDS: SPIRONOLACTONE 50 MG TABLET PO SCH ×2 (09:15→22:10)
[2019-12-14] MEDS: LACTULOSE 10 GM/15 ML UDC PO SCH ×2 (09:16→22:09)
[2019-12-14] MEDS: NYSTATIN TOPICAL POWDER 15GM TP SCH ×3 (09:17→22:10)
[2019-12-14] MEDS: SODIUM CHLORIDE FLUSH 10ML SYR IVF SCH ×2 (09:17→22:12)
[2019-12-14 13:01] VITALS: BP 98/83
--- NOTE | 2019-12-14 15:26 | NUR ---
12/14/19: Observed that RN checked off green sheet for 12/13/19. No check offs for 12/11/19 and 12/12/19. Addendum: 12/14/19 at 1536 by Richelle Lindsey PT Amended: Links added.
[2019-12-14 19:59] VITALS: BP 100/67
[2019-12-15] MEDS: LIDODERM 5% PATCH TD PRN (00:34)
[2019-12-15] MEDS: METHADONE 5 MG TABLET PO PRN ×2 (00:34→20:27)
[2019-12-15] MEDS: CYCLOBENZAPRINE 10 MG TABLET PO PRN (00:34)
[2019-12-15] MEDS: HEPARIN 5,000 UNITS/ML, 1ML SQ SCH ×3 (02:00→17:06)
[2019-12-15 02:47] VITALS: BP 100/68
[2019-12-15 05:52] LABS: CHLORIDE 97 mmol/L (98-107)
[2019-12-15 05:59] LABS: ALANINE AMINOTRANSFERASE 12 U/L (12-78); ALKALINE PHOSPHATASE 194 U/L (45-117); ANION GAP 3 mmol/L (5-15); BILIRUBIN,TOTAL 1.1 mg/dL (0.2-1.0); CREATININE 0.78 mg/dL (0.55-1.02); TOTAL PROTEIN 6.9 g/dL (6.4-8.2)
[2019-12-15] MEDS: GABAPENTIN 100 MG CAPSULE PO SCH ×4 (06:23→20:27)
[2019-12-15] MEDS: LEVOTHYROXINE 125 MCG TABLET PO SCH (06:23)
[2019-12-15] MEDS: NICOTINE 14MG/24 HR PATCH.TD24 TD SCH (06:23)
[2019-12-15 07:08] VITALS: BP 102/67
[2019-12-15] MEDS: LACTULOSE 10 GM/15 ML UDC PO SCH ×2 (08:54→20:27)
[2019-12-15] MEDS: SPIRONOLACTONE 50 MG TABLET PO SCH ×2 (08:54→20:27)
[2019-12-15] MEDS: FUROSEMIDE 20 MG TABLET PO SCH ×2 (08:54→17:05)
[2019-12-15] MEDS: SODIUM CHLORIDE FLUSH 10ML SYR IVF SCH ×2 (08:55→20:27)
[2019-12-15] MEDS: NYSTATIN TOPICAL POWDER 15GM TP SCH ×3 (08:56→20:27)
[2019-12-15] MEDS: OXYcodone IR 5MG TABLET PO PRN ×2 (09:03→17:05)
[2019-12-15 12:37] VITALS: BP 94/66
[2019-12-15 19:40] VITALS: BP 111/73
[2019-12-16] MEDS: CYCLOBENZAPRINE 10 MG TABLET PO PRN ×3 (00:08→18:08)
[2019-12-16] MEDS: HEPARIN 5,000 UNITS/ML, 1ML SQ SCH ×3 (01:42→18:09)
[2019-12-16 03:48] VITALS: BP 127/86
[2019-12-16] MEDS: OXYcodone IR 5MG TABLET PO PRN ×2 (04:10→18:09)
[2019-12-16] MEDS: GABAPENTIN 100 MG CAPSULE PO SCH ×4 (05:13→21:43)
[2019-12-16] MEDS: LEVOTHYROXINE 125 MCG TABLET PO SCH (05:13)
[2019-12-16] MEDS: METHADONE 5 MG TABLET PO PRN (05:13)
[2019-12-16] MEDS: NICOTINE 14MG/24 HR PATCH.TD24 TD SCH (05:14)
[2019-12-16 05:27] LABS: ALBUMIN 2.8 g/dL (3.4-5.0); CALCIUM 8.9 mg/dL (8.5-10.1); CHLORIDE 96 mmol/L (98-107)
[2019-12-16 05:32] LABS: ALANINE AMINOTRANSFERASE 13 U/L (12-78); ALKALINE PHOSPHATASE 194 U/L (45-117); ANION GAP 4 mmol/L (5-15); BILIRUBIN,TOTAL 1.2 mg/dL (0.2-1.0); CREATININE 0.79 mg/dL (0.55-1.02); TOTAL PROTEIN 6.8 g/dL (6.4-8.2)
[2019-12-16 06:48] VITALS: BP 99/62
[2019-12-16] MEDS: NYSTATIN TOPICAL POWDER 15GM TP SCH ×3 (09:56→21:43)
[2019-12-16] MEDS: LACTULOSE 10 GM/15 ML UDC PO SCH ×2 (09:56→21:43)
[2019-12-16] MEDS: SPIRONOLACTONE 50 MG TABLET PO SCH ×2 (09:56→21:43)
[2019-12-16] MEDS: FUROSEMIDE 20 MG TABLET PO SCH ×2 (09:56→18:01)
[2019-12-16] MEDS: SODIUM CHLORIDE FLUSH 10ML SYR IVF SCH ×2 (09:57→21:43)
[2019-12-16 13:42] VITALS: BP 100/64
[2019-12-16 19:13] VITALS: BP 110/71
[2019-12-17 01:04] VITALS: BP 98/65
[2019-12-17] MEDS: HEPARIN 5,000 UNITS/ML, 1ML SQ SCH ×3 (02:25→17:58)
[2019-12-17] MEDS: OXYcodone IR 5MG TABLET PO PRN ×3 (02:33→17:58)
[2019-12-17] MEDS: NICOTINE 14MG/24 HR PATCH.TD24 TD SCH (05:10)
[2019-12-17] MEDS: GABAPENTIN 100 MG CAPSULE PO SCH ×4 (05:10→20:14)
[2019-12-17] MEDS: LEVOTHYROXINE 125 MCG TABLET PO SCH (05:10)
[2019-12-17] MEDS: CYCLOBENZAPRINE 10 MG TABLET PO PRN ×2 (05:10→20:14)
[2019-12-17 06:52] LABS: ALBUMIN 2.9 g/dL (3.4-5.0); CALCIUM 9.4 mg/dL (8.5-10.1)
[2019-12-17 06:53] VITALS: BP 94/56
[2019-12-17 06:56] LABS: ALANINE AMINOTRANSFERASE 13 U/L (12-78); ALKALINE PHOSPHATASE 197 U/L (45-117); BILIRUBIN,TOTAL 1.1 mg/dL (0.2-1.0)
[2019-12-17 07:06] LABS: ANION GAP 4 mmol/L (5-15); CHLORIDE 96 mmol/L (98-107)
[2019-12-17] MEDS: LACTULOSE 10 GM/15 ML UDC PO SCH ×2 (09:35→20:13)
[2019-12-17] MEDS: NYSTATIN TOPICAL POWDER 15GM TP SCH ×3 (09:36→20:14)
[2019-12-17] MEDS: SODIUM CHLORIDE FLUSH 10ML SYR IVF SCH ×2 (09:36→20:14)
[2019-12-17] MEDS: SPIRONOLACTONE 50 MG TABLET PO SCH ×2 (09:36→20:14)
[2019-12-17] MEDS: FUROSEMIDE 20 MG TABLET PO SCH ×2 (09:36→17:58)
[2019-12-17 13:23] VITALS: BP 98/60
[2019-12-17 18:23] VITALS: BP 93/57
[2019-12-17 20:09] VITALS: BP 105/68
[2019-12-18 00:46] VITALS: BP 94/60
[2019-12-18] MEDS: OXYcodone IR 5MG TABLET PO PRN ×3 (01:01→16:45)
[2019-12-18] MEDS: HEPARIN 5,000 UNITS/ML, 1ML SQ SCH ×3 (02:00→16:48)
[2019-12-18] MEDS: LEVOTHYROXINE 125 MCG TABLET PO SCH (05:22)
[2019-12-18] MEDS: CYCLOBENZAPRINE 10 MG TABLET PO PRN ×2 (05:23→20:25)
[2019-12-18] MEDS: GABAPENTIN 100 MG CAPSULE PO SCH ×4 (05:23→20:23)
[2019-12-18] MEDS: NICOTINE 14MG/24 HR PATCH.TD24 TD SCH (05:23)
[2019-12-18 05:52] LABS: ANION GAP 6 mmol/L (5-15); CHLORIDE 96 mmol/L (98-107); CREATININE 0.87 mg/dL (0.55-1.02)
[2019-12-18 07:28] VITALS: BP 93/60
[2019-12-18] MEDS: SPIRONOLACTONE 50 MG TABLET PO SCH ×2 (08:28→20:23)
[2019-12-18] MEDS: LACTULOSE 10 GM/15 ML UDC PO SCH ×2 (08:28→20:23)
[2019-12-18] MEDS: FUROSEMIDE 20 MG TABLET PO SCH ×2 (08:28→16:45)
[2019-12-18] MEDS: NYSTATIN TOPICAL POWDER 15GM TP SCH ×3 (08:28→21:00)
[2019-12-18] MEDS: SODIUM CHLORIDE FLUSH 10ML SYR IVF SCH ×2 (08:29→20:26)
[2019-12-18 12:32] VITALS: BP 97/66
[2019-12-18] MEDS: METHADONE 5 MG TABLET PO PRN (20:23)
[2019-12-18 20:29] VITALS: BP 92/58
[2019-12-19 00:03] VITALS: BP 93/58
[2019-12-19] MEDS: LEVOTHYROXINE 125 MCG TABLET PO SCH (05:36)
[2019-12-19] MEDS: HEPARIN 5,000 UNITS/ML, 1ML SQ SCH ×3 (05:36→22:24)
[2019-12-19] MEDS: GABAPENTIN 100 MG CAPSULE PO SCH ×4 (05:36→20:37)
[2019-12-19] MEDS: METHADONE 5 MG TABLET PO PRN ×3 (05:45→20:37)
[2019-12-19] MEDS: NICOTINE 14MG/24 HR PATCH.TD24 TD SCH (06:00)
[2019-12-19 07:15] VITALS: BP 94/61
[2019-12-19] MEDS: SODIUM CHLORIDE FLUSH 10ML SYR IVF SCH ×2 (07:55→20:37)
[2019-12-19] MEDS: SPIRONOLACTONE 50 MG TABLET PO SCH ×2 (07:55→20:37)
[2019-12-19] MEDS: NYSTATIN TOPICAL POWDER 15GM TP SCH ×3 (07:55→20:38)
[2019-12-19] MEDS: FUROSEMIDE 20 MG TABLET PO SCH ×2 (07:55→16:55)
[2019-12-19] MEDS: LACTULOSE 10 GM/15 ML UDC PO SCH ×2 (07:55→20:36)
[2019-12-19 12:22] VITALS: BP 99/67
[2019-12-19] MEDS: OXYcodone IR 5MG TABLET PO PRN (16:55)
[2019-12-19] MEDS: POLYETHYLENE GLYCOL 17 GM PACKET PO PRN (17:05)
[2019-12-19 19:52] VITALS: BP 96/68
[2019-12-20 01:43] VITALS: BP 102/64
[2019-12-20] MEDS: NICOTINE 14MG/24 HR PATCH.TD24 TD SCH (06:00)
[2019-12-20] MEDS: HEPARIN 5,000 UNITS/ML, 1ML SQ SCH ×3 (06:02→22:07)
[2019-12-20] MEDS: METHADONE 5 MG TABLET PO PRN ×2 (06:02→22:05)
[2019-12-20] MEDS: LEVOTHYROXINE 125 MCG TABLET PO SCH (06:02)
[2019-12-20] MEDS: GABAPENTIN 100 MG CAPSULE PO SCH ×4 (06:02→22:05)
[2019-12-20 06:31] LABS: ALBUMIN 2.9 g/dL (3.4-5.0); ANION GAP 9 mmol/L (5-15); CALCIUM 9.6 mg/dL (8.5-10.1); CHLORIDE 95 mmol/L (98-107)
[2019-12-20 06:34] LABS: ALANINE AMINOTRANSFERASE 14 U/L (12-78); ALKALINE PHOSPHATASE 217 U/L (45-117); BILIRUBIN,TOTAL 1.3 mg/dL (0.2-1.0); CREATININE 0.86 mg/dL (0.55-1.02); TOTAL PROTEIN 7.3 g/dL (6.4-8.2)
[2019-12-20 07:02] VITALS: BP 96/67
[2019-12-20] MEDS: FUROSEMIDE 20 MG TABLET PO SCH ×2 (08:41→17:15)
[2019-12-20] MEDS: LACTULOSE 10 GM/15 ML UDC PO SCH ×2 (08:42→22:05)
[2019-12-20] MEDS: SPIRONOLACTONE 50 MG TABLET PO SCH ×2 (08:42→22:07)
[2019-12-20] MEDS: NYSTATIN TOPICAL POWDER 15GM TP SCH ×3 (08:43→22:05)
[2019-12-20] MEDS: SODIUM CHLORIDE FLUSH 10ML SYR IVF SCH ×2 (08:43→21:00)
[2019-12-20] MEDS: OXYcodone IR 5MG TABLET PO PRN ×2 (08:49→14:52)
[2019-12-20] MEDS: LIDODERM 5% PATCH TD PRN (08:50)
[2019-12-20 12:12] VITALS: BP 106/67
[2019-12-20 18:42] VITALS: BP 102/69
[2019-12-20 22:08] VITALS: BP 92/57
[2019-12-20] MEDS: CYCLOBENZAPRINE 10 MG TABLET PO PRN (23:48)
[2019-12-21 00:17] VITALS: BP 99/64
[2019-12-21] MEDS: OXYcodone IR 5MG TABLET PO PRN ×3 (01:54→16:37)
[2019-12-21] MEDS: NICOTINE 14MG/24 HR PATCH.TD24 TD SCH (05:25)
[2019-12-21 05:47] LABS: CHLORIDE 94 mmol/L (98-107)
[2019-12-21] MEDS: GABAPENTIN 100 MG CAPSULE PO SCH ×4 (05:47→21:05)
[2019-12-21] MEDS: LEVOTHYROXINE 125 MCG TABLET PO SCH (05:48)
[2019-12-21] MEDS: HEPARIN 5,000 UNITS/ML, 1ML SQ SCH ×3 (05:48→21:04)
[2019-12-21] MEDS: METHADONE 5 MG TABLET PO PRN ×2 (05:48→21:26)
[2019-12-21 05:53] LABS: ANION GAP 3 mmol/L (5-15); CALCIUM 9.6 mg/dL (8.5-10.1); CREATININE 0.91 mg/dL (0.55-1.02)
[2019-12-21 07:31] VITALS: BP 99/66
[2019-12-21] MEDS: FUROSEMIDE 20 MG TABLET PO SCH ×2 (08:52→16:37)
[2019-12-21] MEDS: LACTULOSE 10 GM/15 ML UDC PO SCH ×2 (08:52→21:04)
[2019-12-21] MEDS: NYSTATIN TOPICAL POWDER 15GM TP SCH ×3 (08:52→21:05)
[2019-12-21] MEDS: SODIUM CHLORIDE FLUSH 10ML SYR IVF SCH ×2 (08:52→21:05)
[2019-12-21] MEDS: SPIRONOLACTONE 50 MG TABLET PO SCH ×2 (08:52→21:05)
[2019-12-21] MEDS ORDERED: LIDOCAINE 1%, 10ML ONE (11:06)
[2019-12-21 14:48] VITALS: BP 98/63
[2019-12-21] MEDS: CYCLOBENZAPRINE 10 MG TABLET PO PRN (14:50)
[2019-12-21 20:56] VITALS: BP 98/64
[2019-12-22 02:05] VITALS: BP 96/63
[2019-12-22] MEDS: OXYcodone IR 5MG TABLET PO PRN ×3 (02:16→17:04)
[2019-12-22 05:21] LABS: ALANINE AMINOTRANSFERASE 14 U/L (12-78); ALBUMIN 2.9 g/dL (3.4-5.0); ANION GAP 2 mmol/L (5-15); CALCIUM 9.4 mg/dL (8.5-10.1); CHLORIDE 95 mmol/L (98-107)
[2019-12-22] MEDS: GABAPENTIN 100 MG CAPSULE PO SCH ×4 (05:23→21:18)
[2019-12-22] MEDS: HEPARIN 5,000 UNITS/ML, 1ML SQ SCH ×3 (05:23→21:18)
[2019-12-22] MEDS: LEVOTHYROXINE 125 MCG TABLET PO SCH (05:23)
[2019-12-22 05:24] LABS: ALKALINE PHOSPHATASE 219 U/L (45-117); CREATININE 0.96 mg/dL (0.55-1.02); TOTAL PROTEIN 7.6 g/dL (6.4-8.2)
[2019-12-22] MEDS: NICOTINE 14MG/24 HR PATCH.TD24 TD SCH (05:24)
[2019-12-22 08:05] VITALS: BP 95/59
[2019-12-22] MEDS: FUROSEMIDE 20 MG TABLET PO SCH ×2 (08:10→17:04)
[2019-12-22] MEDS: LACTULOSE 10 GM/15 ML UDC PO SCH ×2 (08:10→21:17)
[2019-12-22] MEDS: SPIRONOLACTONE 50 MG TABLET PO SCH ×2 (08:10→21:18)
[2019-12-22] MEDS: SODIUM CHLORIDE FLUSH 10ML SYR IVF SCH ×2 (08:11→21:17)
[2019-12-22] MEDS: NYSTATIN TOPICAL POWDER 15GM TP SCH ×3 (08:13→21:18)
[2019-12-22] MEDS: METHADONE 5 MG TABLET PO PRN (11:50)
[2019-12-22 13:00] VITALS: BP 94/60
[2019-12-22] MEDS: CYCLOBENZAPRINE 10 MG TABLET PO PRN ×2 (13:33→23:36)
[2019-12-22 20:16] VITALS: BP 116/80
[2019-12-23 00:10] VITALS: BP 106/67
[2019-12-23] MEDS: OXYcodone IR 5MG TABLET PO PRN ×2 (04:06→15:15)
[2019-12-23] MEDS: HEPARIN 5,000 UNITS/ML, 1ML SQ SCH ×3 (05:22→20:52)
[2019-12-23] MEDS: GABAPENTIN 100 MG CAPSULE PO SCH ×4 (05:22→20:52)
[2019-12-23] MEDS: LEVOTHYROXINE 125 MCG TABLET PO SCH (05:22)
[2019-12-23] MEDS: NICOTINE 14MG/24 HR PATCH.TD24 TD SCH (05:34)
[2019-12-23 07:46] VITALS: BP 96/68
[2019-12-23] MEDS: SODIUM CHLORIDE FLUSH 10ML SYR IVF SCH ×2 (08:10→20:52)
[2019-12-23] MEDS: LACTULOSE 10 GM/15 ML UDC PO SCH ×2 (08:12→20:52)
[2019-12-23] MEDS: FUROSEMIDE 20 MG TABLET PO SCH ×2 (08:13→18:35)
[2019-12-23] MEDS: METHADONE 5 MG TABLET PO PRN (08:13)
[2019-12-23] MEDS: SPIRONOLACTONE 50 MG TABLET PO SCH ×2 (08:13→20:52)
[2019-12-23] MEDS: NYSTATIN TOPICAL POWDER 15GM TP SCH ×3 (08:26→20:51)
[2019-12-23] MEDS: POLYETHYLENE GLYCOL 17 GM PACKET PO PRN (08:27)
[2019-12-23] MEDS: LIDODERM 5% PATCH TD PRN (08:32)
[2019-12-23 13:54] VITALS: BP 95/58
[2019-12-23] MEDS: CYCLOBENZAPRINE 10 MG TABLET PO PRN ×2 (14:06→23:34)
[2019-12-23 20:57] VITALS: BP 103/69
[2019-12-24 00:24] VITALS: BP 117/84
[2019-12-24] MEDS: NICOTINE 14MG/24 HR PATCH.TD24 TD SCH (05:27)
[2019-12-24] MEDS: GABAPENTIN 100 MG CAPSULE PO SCH ×4 (05:34→21:01)
[2019-12-24] MEDS: HEPARIN 5,000 UNITS/ML, 1ML SQ SCH ×3 (05:34→21:01)
[2019-12-24] MEDS: LEVOTHYROXINE 125 MCG TABLET PO SCH (05:34)
[2019-12-24 07:51] VITALS: BP 105/71
[2019-12-24] MEDS: SODIUM CHLORIDE FLUSH 10ML SYR IVF SCH ×2 (09:40→21:00)
[2019-12-24] MEDS: LACTULOSE 10 GM/15 ML UDC PO SCH ×4 (09:41→21:00)
[2019-12-24] MEDS: CYCLOBENZAPRINE 10 MG TABLET PO PRN ×2 (09:42→17:38)
[2019-12-24] MEDS: SPIRONOLACTONE 50 MG TABLET PO SCH ×2 (09:42→21:01)
[2019-12-24] MEDS: NYSTATIN TOPICAL POWDER 15GM TP SCH ×3 (09:43→21:02)
[2019-12-24] MEDS: FUROSEMIDE 20 MG TABLET PO SCH ×2 (09:43→17:37)
[2019-12-24] MEDS: LIDODERM 5% PATCH TD PRN (09:44)
[2019-12-24] MEDS: OXYcodone IR 5MG TABLET PO PRN ×2 (11:40→21:08)
[2019-12-24 14:57] VITALS: BP 92/61
[2019-12-24 19:15] VITALS: BP 103/74
[2019-12-25] VITALS (7 sets, daily range): BP systolic 94–110; BP diastolic 63–70
[2019-12-25] MEDS: CYCLOBENZAPRINE 10 MG TABLET PO PRN (03:48)
[2019-12-25] MEDS: LEVOTHYROXINE 125 MCG TABLET PO SCH (05:31)
[2019-12-25] MEDS: GABAPENTIN 100 MG CAPSULE PO SCH ×4 (05:31→21:33)
[2019-12-25] MEDS: HEPARIN 5,000 UNITS/ML, 1ML SQ SCH ×3 (05:32→21:33)
[2019-12-25] MEDS: NICOTINE 14MG/24 HR PATCH.TD24 TD SCH (05:34)
[2019-12-25 05:53] LABS: ANION GAP 3 mmol/L (5-15); CALCIUM 9.7 mg/dL (8.5-10.1); CHLORIDE 97 mmol/L (98-107); CREATININE 1.03 mg/dL (0.55-1.02)
[2019-12-25] MEDS: SPIRONOLACTONE 50 MG TABLET PO SCH ×2 (08:06→21:33)
[2019-12-25] MEDS: OXYcodone IR 5MG TABLET PO PRN ×2 (08:07→14:56)
[2019-12-25] MEDS: FUROSEMIDE 20 MG TABLET PO SCH ×2 (08:07→16:30)
[2019-12-25] MEDS: LACTULOSE 10 GM/15 ML UDC PO SCH ×3 (08:08→21:33)
[2019-12-25] MEDS: SODIUM CHLORIDE FLUSH 10ML SYR IVF SCH ×3 (08:08→21:33)
[2019-12-25] MEDS: NYSTATIN TOPICAL POWDER 15GM TP SCH ×3 (08:08→21:33)
[2019-12-26 01:03] VITALS: BP 94/58
[2019-12-26] MEDS: OXYcodone IR 5MG TABLET PO PRN ×4 (01:17→21:38)
[2019-12-26] MEDS: GABAPENTIN 100 MG CAPSULE PO SCH ×4 (05:43→21:38)
[2019-12-26] MEDS: NICOTINE 14MG/24 HR PATCH.TD24 TD SCH (05:43)
[2019-12-26] MEDS: LEVOTHYROXINE 125 MCG TABLET PO SCH (05:43)
[2019-12-26] MEDS: HEPARIN 5,000 UNITS/ML, 1ML SQ SCH ×3 (05:43→21:39)
[2019-12-26 07:45] VITALS: BP 98/66
[2019-12-26] MEDS: SODIUM CHLORIDE FLUSH 10ML SYR IVF SCH ×2 (07:59→21:38)
[2019-12-26] MEDS: FUROSEMIDE 20 MG TABLET PO SCH ×2 (07:59→17:23)
[2019-12-26] MEDS: LACTULOSE 10 GM/15 ML UDC PO SCH ×3 (08:00→21:38)
[2019-12-26] MEDS: NYSTATIN TOPICAL POWDER 15GM TP SCH ×3 (08:00→21:39)
[2019-12-26] MEDS: SPIRONOLACTONE 50 MG TABLET PO SCH ×2 (08:00→21:38)
[2019-12-26] MEDS ORDERED: CYCL-259 PO (10:41)
[2019-12-26] MEDS ORDERED: LEVO125T PO (10:41)
[2019-12-26] MEDS ORDERED: GABA-826 PO (10:41)
[2019-12-26] MEDS ORDERED: FURO20TA3 PO (10:41)
[2019-12-26] MEDS ORDERED: POLY17PO5 PO (10:41)
[2019-12-26] MEDS ORDERED: LACT10SO24 PO (10:41)
[2019-12-26] MEDS ORDERED: SPIR50TA PO (10:41)
[2019-12-26 15:07] VITALS: BP 107/71
[2019-12-26 20:41] VITALS: BP 105/73
[2019-12-27 01:39] VITALS: BP 99/68
[2019-12-27] MEDS: CYCLOBENZAPRINE 10 MG TABLET PO PRN (02:29)
[2019-12-27] MEDS: OXYcodone IR 5MG TABLET PO PRN ×2 (03:40→10:10)
[2019-12-27] MEDS: HEPARIN 5,000 UNITS/ML, 1ML SQ SCH (05:26)
[2019-12-27] MEDS: GABAPENTIN 100 MG CAPSULE PO SCH ×2 (05:26→10:08)
[2019-12-27] MEDS: LEVOTHYROXINE 125 MCG TABLET PO SCH (05:26)
[2019-12-27] MEDS: NICOTINE 14MG/24 HR PATCH.TD24 TD SCH (05:27)
[2019-12-27 06:55] VITALS: BP 105/73
[2019-12-27] MEDS: SODIUM CHLORIDE FLUSH 10ML SYR IVF SCH ×2 (09:00→10:12)
[2019-12-27] MEDS: FUROSEMIDE 20 MG TABLET PO SCH (10:10)
[2019-12-27] MEDS: LACTULOSE 10 GM/15 ML UDC PO SCH (10:10)
[2019-12-27] MEDS: SPIRONOLACTONE 50 MG TABLET PO SCH (10:10)
[2019-12-27] MEDS: NYSTATIN TOPICAL POWDER 15GM TP SCH (10:11)
== END 2019-12-27 12:19 | disposition hospice, home (50) ==
LOC: ED 17:07 → EDIP 22:58 → 5SO 23:06 → 3N 12-10 12:34
PROVIDERS: ADMIT Family Medicine; ATTEND Internal Medicine
PROC: 0W9G3ZZ Drainage of Peritoneal Cavity, Percutaneous Approach (ICD-10-PCS; principal; 2019-12-02)
PROC: 0T9B70Z Drainage of Bladder with Drainage Device, Via Natural or Artificial Opening (ICD-10-PCS; 2019-12-02)
PROC: 0W9G3ZZ Drainage of Peritoneal Cavity, Percutaneous Approach (ICD-10-PCS; 2019-12-07)
PROC: 0W9G3ZZ Drainage of Peritoneal Cavity, Percutaneous Approach (ICD-10-PCS; 2019-12-21)
DX: K74.60 Unspecified cirrhosis of liver (principal); N17.0 Acute kidney failure with tubular necrosis; I76 Septic arterial embolism; K65.2 Spontaneous bacterial peritonitis; E46 Unspecified protein-calorie malnutrition; I11.0 Hypertensive heart disease with heart failure; I07.1 Rheumatic tricuspid insufficiency; E66.01 Morbid (severe) obesity due to excess calories; I27.29 Other secondary pulmonary hypertension; I50.810 Right heart failure, unspecified; R18.8 Other ascites; L03.311 Cellulitis of abdominal wall; I27.81 Cor pulmonale (chronic); E03.9 Hypothyroidism, unspecified; E11.9 Type 2 diabetes mellitus without complications; F15.90 Other stimulant use, unspecified, uncomplicated; F17.210 Nicotine dependence, cigarettes, uncomplicated; F12.90 Cannabis use, unspecified, uncomplicated; F11.10 Opioid abuse, uncomplicated; B18.2 Chronic viral hepatitis C; Z99.3 Dependence on wheelchair; Z86.73 Personal history of transient ischemic attack (TIA), and cerebral infarction without residual deficits; Z80.8 Family history of malignant neoplasm of other organs or systems; Z83.3 Family history of diabetes mellitus; Z86.14 Personal history of Methicillin resistant Staphylococcus aureus infection; Z79.899 Other long term (current) drug therapy; Z88.8 Allergy status to other drugs, medicaments and biological substances
CPT/HCPCS: J3490 ×2; 36415; 49083; 71045; 74177; 80048; 80053; 80061; 80307; 81001; 82042; 82150; 82945; 83036; 83605; 83615; 83735; 83880; 84100; 84145; 84157; 84439; 84443; 84481; 85025; 85610; 85651; 86140; 87040; 87070; 87075; 87086; 87205; 87522; 87806; 88112; 88305; 89051; 93005; 93306; 93970; G0378; J0696; J1644; P9047; Q9967; 92523-GN; G0475; J1940; J2270